=== PATIENT | male | born 1960 | race Two or more races ===

== ENCOUNTER 2023-03-01 21:00 | Inpatient (IN) | payer MEDICAID, OTHER ==
[~2023-03-01] VITALS: Ht 185.4 cm; Wt 99.2 kg
[2023-03-01 21:45] LABS: Basophils # (auto) 0.1 10 ^3/uL (0-0.2); Basophils % (auto) 0.5 % (0.0-2.0); Eosinophils # (auto) 0.3 10 ^3/uL (0-0.8); Eosinophils % (auto) 3.2 % (0.0-7.0); Hematocrit 48.2 % (41.0-53.0); Hemoglobin 15.6 g/dL (13.5-17.5); Lymphocytes # (auto) 2.6 10 ^3/uL (0.4-5.4); Lymphocytes % (auto) 27.5 % (10.0-50.0); Mean Corpuscular Hemoglobin 27.8 pg (28.0-32.0); Mean Corpuscular Hgb Conc. 32.3 g/dL (32.0-36.0); Mean Corpuscular Volume 86.1 fL (80.0-100.0); Monocytes % (auto) 10.3 % (0.0-12.0); Neutrophils # (auto) 5.6 10 ^3/uL (1.6-8.6); Neutrophils % (auto) 58.5 % (37.0-80.0); Nucleated Red Blood Cells % 0.1 %; Red Blood Cells 5.59 10^6/uL (4.5-5.90); White Blood Cell 9.6 10^3/uL (4.4-10.8)
[2023-03-01 22:02] LABS: Urine Bacteria NONE SEEN /hpf (None Seen); Urine Blood Negative /uL (Negative); Urine Clarity Clear (Clear); Urine Color Yellow (Yellow); Urine Protein, UAD Negative (Negative); Urine Specific Gravity 1.018 (1.001-1.035); Urine Urobilinogen Normal (Negative); Urine WBC 28 /hpf (0 - 3); Urine pH 5.5 (5.0-8.0)
[2023-03-01 22:24] LABS: Lactic Acid w/Reflex 2.1 mmol/L (0.4-2.0)
[2023-03-01 22:26] LABS: Alanine Aminotransferase 25 U/L (7-40); Albumin 4.3 g/dL (3.2-4.8); Alkaline Phosphatase 75 U/L (46-116); Anion Gap 8.1 (5-15); Aspartate Aminotransferase 22 U/L (13-40); BUN/Creatinine Ratio 10.5 (10.0-20.0); Blood Urea Nitrogen 18 mg/dL (9-23); Calcium 9.3 mg/dL (8.7-10.4); Carbon Dioxide 20.9 mmol/L (20-30); Chloride 111 mmol/L (98-107); Glucose 111 mg/dL (74-106); Sodium 140 mmol/L (136-145)
[2023-03-01 22:27] LABS: Bilirubin, Total 0.3 mg/dL (0.2-1.0); Total Protein 7.3 g/dL (5.7-8.2)
[2023-03-01 22:50] VITALS: PULSE 104; RESP 20; O2SAT 96
[2023-03-01 23:04] LABS: Base Excess -1.5 mmol/L (-2.0-2.0)
[2023-03-01] MEDS ORDERED: IOHEXOL 350 MG/ML 100ML IJ ONE (23:09)
[2023-03-01] MEDS ORDERED: ASPirin 325 MG TAB PO ONE (23:15)
[2023-03-01 23:58] VITALS: BP 157/117; PULSE 120; RESP 22; TEMP 97.6; O2SAT 94
[2023-03-02] MEDS ORDERED: ENOXAPARIN SOD 100 MG/1 ML SYRINGE SC ONE
[2023-03-02] MEDS ORDERED: ONDANSETRON HCL 4 MG/2 ML VIAL IV PRN (00:15)
[2023-03-02] MEDS ORDERED: NITROGLYCERIN 0.4 MG SL TAB SL PRN (00:15)
[2023-03-02] MEDS ORDERED: HYDROcodone-ACET 5/325MG TAB PO PRN (00:15)
[2023-03-02] MEDS ORDERED: ACETAMINOPHEN 325 MG TAB PO PRN (00:15)
[2023-03-02] MEDS ORDERED: MORPHINE SULFATE INJ 2 MG/ml SYRG IV PRN (00:15)
[2023-03-02] MEDS ORDERED: ALBUTEROL SULF 2.5 MG/0.5ML(0.5%) NEB SOLN NEB PRN (00:15)
[2023-03-02] MEDS: cefTRIAXone 1GM/50ML D5W 50 ML IV SCH ×2 (00:40→21:10)
[2023-03-02] MEDS ORDERED: dilTIAZem 25 MG/5 ML VIAL IV ONE (01:15)
[2023-03-02] MEDS ORDERED: hydrALAZINE HCL 20 MG/ML VL IV ONE (03:30)
[2023-03-02 07:16] VITALS: O2SAT 96
[2023-03-02 07:50] VITALS: PULSE 98; RESP 21; O2SAT 96
[2023-03-02] MEDS: ENOXAPARIN SOD 100 MG/1 ML SYRINGE SC SCH ×2 (09:47→23:22)
[2023-03-02] MEDS: PANTOPRAZOLE 40 MG TAB PO SCH (09:48)
[2023-03-02] MEDS: ASPirin 81 mg TAB PO SCH (09:48)
[2023-03-02] MEDS: LISINOPRIL 10 MG TAB PO SCH (09:48)
[2023-03-02] MEDS ORDERED: hydrALAZINE HCL 20 MG/ML VL IV PRN (11:15)
[2023-03-02] MEDS: NICOTINE 14 MG/24HR TOPICAL PATCH TD SCH (14:24)
[2023-03-02 20:00] VITALS: PULSE 107; RESP 29; O2SAT 96
[2023-03-02 21:15] LABS: COVID19 ANTIGEN SOFIA FIA NEGATIVE (NEGATIVE)
[2023-03-02 21:31] VITALS: O2SAT 96
[2023-03-03] VITALS (10 sets, daily range): BP systolic 100–125; BP diastolic 71–92; PULSE 74–116; RESP 18–22; TEMP 97.6–98.9; O2SAT 92–100
[2023-03-03 06:08] LABS: Basophils # (auto) 0 10 ^3/uL (0-0.2); Basophils % (auto) 0.4 % (0.0-2.0); Hemoglobin 16.5 g/dL (13.5-17.5); Neutrophils # (auto) 6.6 10 ^3/uL (1.6-8.6); Nucleated Red Blood Cells % 0.1 %
[2023-03-03 06:12] LABS: Eosinophils # (auto) 0.3 10 ^3/uL (0-0.8); Eosinophils % (auto) 2.7 % (0.0-7.0); Hematocrit 50.9 % (41.0-53.0); Lymphocytes # (auto) 1.5 10 ^3/uL (0.4-5.4); Lymphocytes % (auto) 15.6 % (10.0-50.0); Mean Corpuscular Hemoglobin 27.8 pg (28.0-32.0); Mean Corpuscular Hgb Conc. 32.4 g/dL (32.0-36.0); Mean Corpuscular Volume 85.6 fL (80.0-100.0); Monocytes % (auto) 11.1 % (0.0-12.0); Neutrophils % (auto) 70.2 % (37.0-80.0); Red Blood Cells 5.95 10^6/uL (4.5-5.90); White Blood Cell 9.4 10^3/uL (4.4-10.8)
[2023-03-03 06:27] LABS: Alanine Aminotransferase 23 U/L (7-40); Albumin 4.2 g/dL (3.2-4.8); Alkaline Phosphatase 72 U/L (46-116); Anion Gap 9.5 (5-15); Aspartate Aminotransferase 16 U/L (13-40); Calcium 9.1 mg/dL (8.7-10.4); Carbon Dioxide 20.5 mmol/L (20-30); Chloride 108 mmol/L (98-107); Glucose 104 mg/dL (74-106); Potassium 4.2 mmol/L (3.5-5.1); Sodium 138 mmol/L (136-145)
[2023-03-03 06:28] LABS: Bilirubin, Total 0.7 mg/dL (0.2-1.0); Blood Urea Nitrogen 18 mg/dL (9-23); Total Protein 7.2 g/dL (5.7-8.2)
[2023-03-03] MEDS: ASPirin 81 mg TAB PO SCH (09:08)
[2023-03-03] MEDS: PANTOPRAZOLE 40 MG TAB PO SCH (09:08)
[2023-03-03] MEDS: ENOXAPARIN SOD 100 MG/1 ML SYRINGE SC SCH ×2 (09:09→21:44)
[2023-03-03] MEDS: LISINOPRIL 10 MG TAB PO SCH (09:09)
[2023-03-03] MEDS: NICOTINE 14 MG/24HR TOPICAL PATCH TD SCH (09:10)
[2023-03-03 12:25] LABS: Amphetamine Screen, Urine Pos (NEGATIVE)
[2023-03-03 12:27] LABS: Barbiturate Scree,Urine Neg (NEGATIVE); Benzodiazephine Screen, Urine Neg (NEGATIVE); Cannabinoid Screen, Urine Neg (NEGATIVE); Cocaine Screen, Urine Neg (NEGATIVE); Opiate Scree,Urine Neg (NEGATIVE); Phencyclidine Screen, Urine Neg (NEGATIVE)
[2023-03-03] MEDS: cefTRIAXone 1GM/50ML D5W 50 ML IV SCH (21:44)
[2023-03-04] VITALS (9 sets, daily range): BP systolic 102–119; BP diastolic 66–91; PULSE 81–109; RESP 14–20; TEMP 97.5–98.8; O2SAT 91–98
[2023-03-04] MEDS: LISINOPRIL 10 MG TAB PO SCH (09:26)
[2023-03-04] MEDS: ASPirin 81 mg TAB PO SCH (09:27)
[2023-03-04] MEDS: PANTOPRAZOLE 40 MG TAB PO SCH (09:27)
[2023-03-04 09:28] LABS: Basophils # (auto) 0 10 ^3/uL (0-0.2); Basophils % (auto) 0.6 % (0.0-2.0); Eosinophils # (auto) 0.3 10 ^3/uL (0-0.8); Eosinophils % (auto) 3.8 % (0.0-7.0); Hematocrit 51.2 % (41.0-53.0); Hemoglobin 16.7 g/dL (13.5-17.5); Lymphocytes # (auto) 1.3 10 ^3/uL (0.4-5.4); Lymphocytes % (auto) 17.6 % (10.0-50.0); Mean Corpuscular Hemoglobin 27.9 pg (28.0-32.0); Mean Corpuscular Hgb Conc. 32.7 g/dL (32.0-36.0); Mean Corpuscular Volume 85.5 fL (80.0-100.0); Monocytes # (auto) 0.7 10 ^3/uL (0-1.3); Monocytes % (auto) 9.4 % (0.0-12.0); Neutrophils # (auto) 5.2 10 ^3/uL (1.6-8.6); Neutrophils % (auto) 68.6 % (37.0-80.0); Nucleated Red Blood Cells % 0.1 %; Red Blood Cells 5.99 10^6/uL (4.5-5.90); Red Cell Distribution Width 14.9 % (11.8-14.3); White Blood Cell 7.6 10^3/uL (4.4-10.8)
[2023-03-04] MEDS: NICOTINE 14 MG/24HR TOPICAL PATCH TD SCH (09:28)
[2023-03-04] MEDS: ENOXAPARIN SOD 100 MG/1 ML SYRINGE SC SCH (09:28)
[2023-03-04 10:06] LABS: Alanine Aminotransferase 37 U/L (7-40); Albumin 4.2 g/dL (3.2-4.8); Alkaline Phosphatase 65 U/L (46-116); Anion Gap 8.9 (5-15); Aspartate Aminotransferase 26 U/L (13-40); BUN/Creatinine Ratio 13.8 (10.0-20.0); Bilirubin, Total 0.6 mg/dL (0.2-1.0); Blood Urea Nitrogen 21 mg/dL (9-23); Calcium 9.2 mg/dL (8.5-10.1); Carbon Dioxide 19.1 mmol/L (20-30); Chloride 108 mmol/L (98-107); Glucose 166 mg/dL (74-106); Potassium 4.2 mmol/L (3.5-5.1); Sodium 136 mmol/L (136-145); Total Protein 7.2 g/dL (5.7-8.2)
[2023-03-04] MEDS: APIXABAN 5 MG TAB PO SCH (21:17)
[2023-03-04] MEDS: cefTRIAXone 1GM/50ML D5W 50 ML IV SCH (21:17)
[2023-03-05 05:00] VITALS: BP 123/81; PULSE 85; RESP 16; TEMP 97.9; O2SAT 95
[2023-03-05 06:04] LABS: Basophils # (auto) 0 10 ^3/uL (0-0.2); Basophils % (auto) 0.5 % (0.0-2.0); Eosinophils # (auto) 0.4 10 ^3/uL (0-0.8); Eosinophils % (auto) 4.4 % (0.0-7.0); Hematocrit 49.7 % (41.0-53.0); Hemoglobin 16.4 g/dL (13.5-17.5); Lymphocytes # (auto) 1.8 10 ^3/uL (0.4-5.4); Mean Corpuscular Hemoglobin 28.1 pg (28.0-32.0); Mean Corpuscular Hgb Conc. 32.9 g/dL (32.0-36.0); Mean Corpuscular Volume 85.2 fL (80.0-100.0); Monocytes % (auto) 12.8 % (0.0-12.0); Neutrophils % (auto) 60.3 % (37.0-80.0); Nucleated Red Blood Cells % 0.1 %; Red Blood Cells 5.83 10^6/uL (4.5-5.90); Red Cell Distribution Width 14.9 % (11.8-14.3); White Blood Cell 8.2 10^3/uL (4.4-10.8)
[2023-03-05 06:05] LABS: Anion Gap 7.3 (5-15); Carbon Dioxide 21.7 mmol/L (20-30); Chloride 108 mmol/L (98-107); Potassium 4.9 mmol/L (3.5-5.1); Sodium 137 mmol/L (136-145)
[2023-03-05 06:06] LABS: Calcium 9.2 mg/dL (8.7-10.4)
[2023-03-05 06:11] LABS: BUN/Creatinine Ratio 14.5 (10.0-20.0); Blood Urea Nitrogen 25 mg/dL (9-23); Glucose 107 mg/dL (74-106)
[2023-03-05 08:00] VITALS: PULSE 93; O2SAT 94
[2023-03-05] MEDS: NICOTINE 14 MG/24HR TOPICAL PATCH TD SCH (08:57)
[2023-03-05] MEDS: APIXABAN 5 MG TAB PO SCH (08:58)
[2023-03-05] MEDS: ASPirin 81 mg TAB PO SCH (08:58)
[2023-03-05] MEDS: LISINOPRIL 10 MG TAB PO SCH (08:59)
[2023-03-05] MEDS: PANTOPRAZOLE 40 MG TAB PO SCH (08:59)
[2023-03-05 09:01] VITALS: BP 114/88; PULSE 88; RESP 19; TEMP 97.5; O2SAT 90
[2023-03-05] MEDS ORDERED: APIX5TAB4 PO ×3 (09:42→09:44)
[2023-03-05 10:00] VITALS: O2SAT 94
[2023-03-05 12:26] VITALS: BP 120/90; PULSE 87; RESP 20; TEMP 97.9; O2SAT 92
[2023-03-06 09:12] LABS: Hepatitis B Surface Antigen Negative (Negative)
[2023-03-06 09:34] LABS: Hepatitis C Antibody Negative (Negative)
[2023-03-11] MEDS ORDERED: APIXABAN 5 MG TAB PO SCH (22:00)
== END 2023-03-05 14:45 | disposition home or self-care (01) | DRG 134 ==
LOC: ER 21:00 → TELE 03-02 00:16 → TELE-WESTW 03-02 23:33
PROVIDERS: ADMIT Internal Medicine; ATTEND Internal Medicine
DX: I26.99 Other pulmonary embolism without acute cor pulmonale (principal); J96.01 Acute respiratory failure with hypoxia; I50.21 Acute systolic (congestive) heart failure; N17.9 Acute kidney failure, unspecified; N39.0 Urinary tract infection, site not specified; Z20.822 Contact with and (suspected) exposure to COVID-19; F17.210 Nicotine dependence, cigarettes, uncomplicated; E04.1 Nontoxic single thyroid nodule; E87.3 Alkalosis; I13.0 Hypertensive heart and chronic kidney disease with heart failure and stage 1 through stage 4 chronic kidney disease, or unspecified chronic kidney disease; N18.32 Chronic kidney disease, stage 3b; F15.10 Other stimulant abuse, uncomplicated; E66.9 Obesity, unspecified; Z83.3 Family history of diabetes mellitus; Z82.5 Family history of asthma and other chronic lower respiratory diseases; Z79.01 Long term (current) use of anticoagulants; Z71.6 Tobacco abuse counseling; Z68.28 Body mass index [BMI] 28.0-28.9, adult
CPT/HCPCS: 36415; 36600; 71045; 71275; 80048; 80053; 80307; 81001; 82805; 83036; 83605; 83880; 84443; 84484; 85025; 85379; 86803; 87086; 87340; 87426; 93005; 93306; 93886; 93970; 99291; G0378; J0696

== ENCOUNTER 2024-11-27 23:13 | Inpatient (IN) | payer MEDICAID ==
[~2024-11-27] VITALS: Ht 185.4 cm; Wt 92.9 kg
[~2024-11-27 23:13] MED LIST: APIX5TAB4 PO
--- NOTE | 2024-11-27 23:35 | ED.PDOC ---
HPI Comments 64 year old male presents to the ED with a chief complaint of chest pain onset 3 days. Patient states he has been experiencing chest pain described as a sharp, pressure sensation as well as shortness of breath, fatigue, dizziness for the past 3 days. He noticed symptoms worsen today, was not able to walk from bedroom to restroom due to shortness of breath, fatigue. Patient initially saw PCP 6 months ago, missed follow up appointment, has appointment on 11/29/24. Denies na usea, vomiting, diarrhea, abdominal pain, headache, fevers, chills, dysuria. No other symptoms or modifying factors present at this time. Chief Complaint: Chest Pain Time Seen by MD: 23:25 Reviewed Notes: Medications, Allergies Allergies: Coded Allergies: NO KNOWN ALLERGIES (Unverified , 03/01/23) Home Meds Active Scripts Apixaban Base (Eliquis Starter Pack) 5 Mg Tab, 5 MG PO BID, #70 TAB 1 Refill take 2 tablets twice per day for 7 days then 1 tab twice per day until finish. Prov:SHAYNE ALMANZA MD 03/05/23 Information Source: Patient Mode of Arrival: Ambulatory Severity: Moderate Timing: Days Duration: Since onset Prehospital treatment: None Location: Chest (L) Radiation: No Radiation Quality: Sharp, Pressure Onset: At Rest Cardiac Risk Factors: None PE Risk Factors: None History of: None Modifying Factors: Nothing Associated Signs and Symptoms: SOB Past Medical History PAST MEDICAL HISTORY: Denies Surgical History: Denies all surgeries Family History Family History: Reviewed,noncontributory to illness, No family hx of Cancer, No family hx of DM, No family hx of Heart renae, No family hx of HTN, No family hx ofKidney renae, No family hx of Liver renae, No family hx of Lung renae, No family hx of Stroke Social History Smoker: Non-Smoker Alcohol: Denies ETOH Use Drugs: Denies Drug Use Lives In: Home Constitutional: reports: fatigue; denies: chills, diaphoresis, fever, malaise, sweats, weakness, others EENTM: denies: blurred vision, double vision, ear bleeding, ear discharge, ear drainage, ear pain, ear ringing, eye pain, eye redness, hearing loss, mouth pain, mouth swelling, nasal discharge, nose bleeding, nose congestion, nose pain, photophobia, tearing, throat pain, throat swelling, voice changes, others Respiratory: reports: shortness of breath; denies: cough, hemoptysis, orthopnea, SOB at rest, SOB with excertion, stridor, wheezing, others Cardiovascular: reports: chest pain; denies: dizzy spells, diaphoresis, Dyspnea on exertion, edema, irregular heart beat, left arm pain, lightheadedness, palpitations, PND, syncope, others Gastrointestinal: denies: abdomen distended, abdominal pain, blood streaked bowels, constipated, diarrhea, dysphagia, difficulty swallowing, hematemesis, melena, nausea, poor appetite, poor fluid intake, rectal bleeding, rectal pain, vomiting, others Genitourinary: denies: burning, dysuria, flank pain, frequency, hematuria, inco ntinence, penile discharge, penile sore, pain, testicle pain, testicle swelling, urgency, others Neurological: reports: dizziness; denies: fainting, headache, left sided numbness, left sided weakness, numbness, paresthesia, pre-existing deficit, right sided numbness, right sided weakness, seizure, speech problems, tingling, tremors, weakness, others Musculoskeletal: denies: back pain, gout, joint pain, joint swelling, muscle pain, muscle stiffness, neck pain, others Integumetry: denies: bruises, change in color, change in hair/nails, dryness, laceration, lesions, lumps, rash, wounds, others Allergic/Immunocompromised: denies: Difficulty Healing, Frequent Infections, Hives, Itching, others Hematologic/Lymphatic: denies: anemia, blood clots, easy bleeding, easy bruising, swollen glands, others Endocrine: denies: excessive hunger, excessive sweating, excessive thirst, excessive urination, flushing, intolerance to cold, intolerance to heat, unexplained weight gain, unexplained weight loss, others Psychiatric: denies: anxiety, bipolar disorder, depression, hopeless, panic disorder, schizophrenia, sleepless, suicidal, others All Other Systems: Reviewed and Negative Physical Exam General Appearance: Normal HEENT: Normal ENT Inspection, Pharynx Normal, TMs Normal Neck: Full Range of Motion, Non-Tender, Normal, Normal Inspection Respiratory: Chest Non-Tender, Lungs Clear, No Accessory Muscle Use, No Respiratory Distress, Normal Breath Sounds Cardiovascular: No Edema, No JVD, No Murmur, No Gallop, Normal Peripheral Pulses, Regular Rate/Rhythm Breast Exam: Deferred Gastrointestinal: No Organomegaly, Non Tender, No Pulsatile Mass, Normal Bowel Sounds, Soft Genitalia: Deferred Pelvic: Deferred Rectal: Deferred Extremities: No calf tenderness, Normal capillary refill, Normal inspection, Normal range of motion, Non-tender, No pedal edema Musculoskeletal : Apperance: Normal 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 Was a procedure done?: No CP Differential Dx Differential Diagnosis: A-fib, A-Flutter, Angina, Heart Failure, Hyperthyroidism, Hyperventilation, NE, V-Fib, V-Tach, Other X-Ray, Labs, Meds, VS Vital Signs Date Time Temp Pulse Resp B/P (MAP) Pulse Ox O2 Delivery O2 Flow Rate FiO2 11/28/24 01:05 135/80 11/28/24 01:03 109 15 135/80 11/28/24 00:10 117 11/27/24 23:20 98.3 111 16 149/112 (124) 95 98.3 11/27/24 23:19 116 Lab Test 11/28/24 00:15 11/27/24 23:24 Range/Units Troponin I High Sensitivity 183 *H 190 *H </=54 ng/L White Blood Count 12.1 H 4.4-10.8 10^3/uL Red Blood Count 5.92 H 4.5-5.90 10^6/uL Hemoglobin 17.2 13.5-17.5 g/dL Hematocrit 52.2 41.0-53.0 % Mean Corpuscular Volume 88.2 80.0-100.0 fL Mean Corpuscular Hemoglobin 29.0 28.0-32.0 pg Mean Corpuscular Hemoglobin Concent 32.9 32.0-36.0 g/dL Red Cell Distribution Width 15.0 H 11.8-14.3 % Platelet Count 244 140-450 10^3/uL Mean Platelet Volume 8.3 6.9-10.8 fL Neutrophils (%) (Auto) 68.8 37.0-80.0 % Lymphocytes (%) (Auto) 17.5 10.0-50.0 % Monocytes (%) (Auto) 12.5 H 0.0-12.0 % Eosinophils (%) (Auto) 0.6 0.0-7.0 % Basophils (%) (Auto) 0.6 0.0-2.0 % Neutrophils # (Auto) 8.3 1.6-8.6 10 ^3/uL Lymphocytes # (Auto) 2.1 0.4-5.4 10 ^3/uL Monocytes # (Auto) 1.5 H 0-1.3 10 ^3/uL Eosinophils # (Auto) 0.1 0-0.8 10 ^3/uL Basophils # (Auto) 0.1 0-0.2 10 ^3/uL Nucleated Red Blood Cells 0.1 % Prothrombin Time 11.7 9.3-11.8 sec Prothrombin Time INR 1.12 0.9-1.15 Activated Partial Thromboplast Time 28.7 24.5-34.5 SEC D-Dimer, Quantitative 2.03 H 0.0-0.49 mg/L FEU Sodium Level 139 136-145 mmol/L Potassium Level 4.3 3.5-5.1 mmol/L Chloride Level 108 H 98-107 mmol/L Carbon Dioxide Level 21 20-31 mmol/L Anion Gap 10 5-15 Blood Urea Nitrogen 18 9-23 mg/dL Creatinine 2.17 H 0.700-1.30 mg/dL Glomerular Filtration Rate Calc 33 >90 mL/min BUN/Creatinine Ratio 8.3 L 10.0-20.0 Serum Glucose 90 74-106 mg/dL Calcium Level 9.3 8.7-10.4 mg/dL Total Bilirubin 0.9 0.2-1.0 mg/dL Aspartate Amino Transferase (AST) 70 H 13-40 U/L Alanine Aminotransferase (ALT) 82 H 7-40 U/L Alkaline Phosphatase 102 46-116 U/L B-Type Natriuretic Peptide 663.03 0-100 pg/mL Total Protein 7.2 5.7-8.2 g/dL Albumin 4.4 3.2-4.8 g/dL Current Medications Medications (Trade) Dose Ordered Sig/Sarahi Route Start Time Stop Time Status Last Admin Aspirin 162 mg ONCE ONCE PO 11/28/24 00:15 11/28/24 00:16 DC 11/28/24 01:01 Nitroglycerin (Nitro-Bid) 1 pkg ONCE ONCE TD 11/28/24 00:15 11/28/24 00:16 DC 11/28/24 01:05 Morphine Sulfate 4 mg ONCE ONCE IV 11/28/24 00:15 11/28/24 00:16 DC 11/28/24 01:03 Ondansetron HCl (Zofran) 4 mg ONCE ONCE IV 11/28/24 00:15 11/28/24 00:16 DC 11/28/24 01:01 Time of 1ST Reevaluation: 23:55 Reevaluation 1ST: Unchanged Patient Education/Counseling: Diagnosis, Treatment, Prognosis Family Education/Counseling: No Family Present Departure 1 Departure Time of Disposition: 01:30 Impression: Primary Impression: Acute coronary syndrome Additional Impression: History of pulmonary embolism Disposition: ADMITTED INPATIENT Admit to: [facility] Condition: Guarded Discharged With: Self Comments Chest Pain and Dyspnea with History of PE Chief Complaint: Chest pain and shortness of breath with exertion History of Present Illness: 64-year-old male presents with progressive dyspnea on exertion and chest discomfort/pain for the past couple of days. Symptoms worsen with any kind of physical activity. Patient has significant history of bilateral pulmonary emboli six months ago, for which he was prescribed Eliquis but only completed one month of therapy instead of the full course. His history is also notable for hypertension. Given his current presentation and history of non-compliance with anticoagulation, there is high concern for recurrent pulmonary embolism and/or acute coronary syndrome. 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 Allergies: No known allergies documented Past Medical History: Hypertension Bilateral pulmonary emboli (6 months ago) Chronic kidney disease Vital Signs: Heart Rate: Sinus tachycardia, approximately 110 bpm Physical Exam: Physical examination details not documented in 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 Problem List: 1. Chest pain with elevated troponin 2. Dyspnea on exertion 3. History of PE with medication non-compliance 4. Acute kidney injury/CKD 5. Hypertension Differential Diagnosis: 1. Acute Coronary Syndrome 2. Recurrent Pulmonary Embolism 3. Acute Decompensated Heart Failure 4. Acute Kidney Injury ED Course: Patient received aspirin and IV fluids. Given elevated troponin and concern for PE, decision made to initiate heparin infusion. CT angiogram deferred due to renal dysfunction; VQ scan planned for tomorrow. Assessment and Plan: 1. Acute Coronary Syndrome/Chest Pain: - Elevated troponin with exertional symptoms - Started on aspirin - Admit for further cardiac workup and management 2. Suspected Recurrent Pulmonary Embolism: - History of bilateral PE with medication non-compliance - Elevated D-dimer - Started on heparin infusion - Plan for VQ scan tomorrow due to inability to perform CTA (renal dysfunction) 3. Acute Kidney Injury/CKD: - Elevated creatinine 2.17, GFR 33 - IV fluids initiated - Will require careful medication dosing and contrast avoidance Disposition: Admission to hospital for further workup and management Billing Information: ICD-10: R07.9 - Chest pain, unspecified ICD-10: I26.99 - Other pulmonary embolism without acute cor pulmonale ICD-10: N17.9 - Acute kidney failure, unspecified ICD-10: I10 - Essential (primary) hypertension Critical Care Note Critical Care Time?: Yes (35 min-critical care time only) Critical care comment: Total critical care time: Approximately 36 minutes Due to a high probability of clinically significant, life threatening deterioration, the patient required my highest level of preparedness to intervene emergently and I personally spent this critical care time directly and personally managing the patient. This critical care time included obtaining a history; examining the patient; pulse oximetry; ordering and review of studies; arranging urgent treatment with development of a management plan; evaluation of patient's response to treatment; frequent reassessment; and, discussions with other providers. This critical care time was performed to assess and manage the high probability of imminent, life-threatening deterioration that could result in multi-organ failure. It was exclusive of separately billable procedures and treating other patients. Stability Stability form required: No Heart Score Heart Score: Heart Score Response (Comments) Value History Highly Suspicious 2 EKG Repolarization Disturb 1 Age 45-64 1 Risk Factors 1 or 2 risk factors 1 Troponin >3 x's Normal limit 2 Total 7 I personally scribed for LEONARDO RICHARDSON MD ([email or web address]) on 11/27/24 at 23:35. Electronically submitted by Carisa Driver ([email or web address]). LEONARDO RICHARDSON MD Nov 27, 2024 23:35
[2024-11-27 23:37] LABS: Basophils # (auto) 0.1 10 ^3/uL (0-0.2); Basophils % (auto) 0.6 % (0.0-2.0); Eosinophils # (auto) 0.1 10 ^3/uL (0-0.8); Eosinophils % (auto) 0.6 % (0.0-7.0); Hematocrit 52.2 % (41.0-53.0); Hemoglobin 17.2 g/dL (13.5-17.5); Lymphocytes # (auto) 2.1 10 ^3/uL (0.4-5.4); Lymphocytes % (auto) 17.5 % (10.0-50.0); Monocytes # (auto) 1.5 10 ^3/uL (0-1.3); Monocytes % (auto) 12.5 % (0.0-12.0); Neutrophils # (auto) 8.3 10 ^3/uL (1.6-8.6); Neutrophils % (auto) 68.8 % (37.0-80.0); Nucleated Red Blood Cells % 0.1 %; Red Blood Cells 5.92 10^6/uL (4.5-5.90); White Blood Cell 12.1 10^3/uL (4.4-10.8)
[2024-11-27 23:38] LABS: Mean Corpuscular Hgb Conc. 32.9 g/dL (32.0-36.0); Mean Corpuscular Volume 88.2 fL (80.0-100.0); Platelet Count (auto) 244 10^3/uL (140-450)
[2024-11-28] VITALS (7 sets, daily range): BP systolic 118–133; BP diastolic 72–86; PULSE 92–111; RESP 19–32; TEMP 98.2; O2SAT 91–97
[2024-11-28 00:01] LABS: Albumin 4.4 g/dL (3.2-4.8); Alkaline Phosphatase 102 U/L (46-116); Anion Gap 10 (5-15); BUN/Creatinine Ratio 8.3 (10.0-20.0); Bilirubin, Total 0.9 mg/dL (0.2-1.0); Blood Urea Nitrogen 18 mg/dL (9-23); Calcium 9.3 mg/dL (8.7-10.4); Carbon Dioxide 21 mmol/L (20-31); Glucose 90 mg/dL (74-106); INR 1.12 (0.9-1.15); Partial Thromboplastin Time 28.7 SEC (24.5-34.5); Potassium 4.3 mmol/L (3.5-5.1); Prothrombin Time 11.7 sec (9.3-11.8); Sodium 139 mmol/L (136-145); Total Protein 7.2 g/dL (5.7-8.2)
[2024-11-28 00:02] LABS: Alanine Aminotransferase 82 U/L (7-40); Aspartate Aminotransferase 70 U/L (13-40); Chloride 108 mmol/L (98-107)
--- NOTE | 2024-11-28 00:30 | DVH ---
CHEST RADIOGRAPH Indication: CHEST PAIN Technique: Single frontal view of the chest was obtained Comparison: XY CHEST PORTABLE on DOS: 03/01/23 FINDINGS: Lines and Tubes: None Lungs: Clear Pleura: No effusion. No pneumothorax. Cardiomediastinal contours: Unremarkable Bones: Unremarkable IMPRESSION: Clear lungs.
[2024-11-28] MEDS: ONDANSETRON HCL 4 MG/2 ML VIAL IV ONE (01:01)
[2024-11-28] MEDS: ASPirin 81 mg TAB PO ONE (01:01)
[2024-11-28] MEDS: MORPHINE SULFATE 4 MG/ML SYR/VIAL IV ONE (01:03)
[2024-11-28] MEDS: NITROGLYCERIN 2% OINT 1GM PKG TD ONE (01:05)
[2024-11-28] MEDS: HEPARIN SODIUM (PORCINE) 5000 UNITS/ML 1ML VIAL IV ONE ×2 (02:04→21:47)
[2024-11-28] MEDS: SODIUM CHLORIDE 0.9% 1,000 ML IV SCH ×2 (02:15→11:45)
[2024-11-28] MEDS: HEPARIN DRIP/D5W 100UNITS/ML 250 ML IV SCH ×4 (02:20→21:51)
[2024-11-28 02:34] LABS: Triglycerides 112 mg/dL (< 150)
[2024-11-28 02:35] LABS: Cholesterol 161 mg/dL (< 200)
--- NOTE | 2024-11-28 02:39 | DVHHPRES ---
History of Present Illness Resident Creating Document: CLAUDE RADER History of Present Illness This is a 64-year-old male with no past medical history of relevance, who takes no medications at home. Patient presented to the ED with chief complaint of acute chest pain associated with shortness of breaths. The patient states that the symptoms started 3-4 days ago consistent initially with shortness of breaths that progressed developing chest pain. The patient described the pain as intermittent sharp pain that comes and goes and rates the pain as 8/10 on the pa in scale. On admission, the patient was requiring 2 L of oxygen through nasal cannula to saturating 91%. Patient denied lower extremity pain, swelling, fever/chills, abdominal tenderness or any other symptoms. Initial labs CBC was grossly unremarkable, CMP showed a creatinine of 2.17 and BUN of 18. Troponins came back elevated, D-dimer came back significantly elevated and BNP was 663. Initial chest x-ray was grossly clear with no evidence of consolidations. We will order V/Q scan since the patient has TAHIRA on CKD and she did not get IV contrast at this point. Patient was started on heparin drip and we will be admitted for further assessment and management. Past medical history: Denies Home medications: Denies Past surgical history: Denies Social history: Reports consumption of marijuana and methamphetamine and occasional alcohol. Reports that quit smoking long time ago. Past Surgical History: None Family History: None Smoke: Quit ALCOHOL: occassional Drugs: Marijuana, Other (Methamphetamines) Lives: with Family Domestic Violence: Neg Review of Systems Constitutional: No: Fever, Chills, Sweats, Weakness, Malaise, Other Eyes: No: Pain, Vision change, Conjunctivae inflammation, Eyelid inflammation, Other, Redness ENT: No: Ear pain, Ear discharge, Nose pain, Nose discharge, Nose congestion, Mouth pain, Mouth swelling, Throat pain, Throat swelling, Other Respiratory: Shortness of breath, SOB with excertion, Pleuritic Pain; No: Cough, Dry, Wheezing, Hemoptysis, Sputum, Wheezing, Other Cardiovascular: Chest Pain; No: Palpitations, Orthopnea, Paroxysmal Noc. Dyspnea, Edema, Lt Headedness, Other Gastrointestinal: No: Nausea, Vomiting, Abdominal Pain, Diarrhea, Constipation, Melena, Hematochezia, Other Genitourinary: No Dysuria, No Frequency, No Incontinence, No Hematuria, No Rete ntion, No Other Musculoskeletal: No: other, neck pain, shoulder pain, arm pain, back pain, hand pain, leg pain, foot pain Skin: No: Rash, Lesions, Jaundice, Bruising, Other Neurological: No: Weakness, Numbness, Incoordination, Change in speech, Confusion, Seizures, Other Allergies: Coded Allergies: NO KNOWN ALLERGIES (Unverified , 03/01/23) Medications Current Medications Medications Dose Ordered Sig/Sarahi Route Start Time Stop Time Status Last Admin Dose Admin Heparin Sodium/ Dextrose 250 ml @ 10 mls/hr Q24H IV 11/28/24 01:45 Sodium Chloride 1,000 ml @ 60 mls/hr [id number] IV 11/28/24 02:15 UNV Acetaminophen 650 mg Q6HP PRN PO 11/28/24 02:15 UNV Exam Vital Signs Vital Signs Date Time Temp Pulse Resp B/P (MAP) Pulse Ox O2 Delivery O2 Flow Rate FiO2 11/28/24 01:05 135/80 11/28/24 01:03 109 15 11/27/24 23:20 98.3 95 98.3 General Appearance: Alert, Oriented X3, Cooperative, mild distress HEENT: Atraumatic, PERRLA, EOMI, Mucous membr. moist/pink Respiratory: Clear to auscultation, Normal air movement Cardiovascular: Regular rate, Normal S1, Normal S2, No murmurs Abdominal: Normal bowel sounds, Soft, No tenderness, No hepatospenomegaly, No masses Extremities: No clubbing, No cyanosis, No edema, Normal pulses, No tenderness/swelling Skin: No rashes, No breakdown, No significant lesion Neuro: Normal gait, Normal speech, Strength at 5/5 X4 ext, Normal tone, Sensation intact, Cranial nerves 3-12 NL, Reflexes 2+ Psych/Mental Status: Mental status NL, Mood NL Labs/Xrays Labs Test 11/28/24 00:15 11/27/24 23:24 Range/Units Troponin I High Sensitivity 183 *H </=54 ng/L White Blood Count 12.1 H 4.4-10.8 10^3/uL Red Blood Count 5.92 H 4.5-5.90 10^6/uL Hemoglobin 17.2 13.5-17.5 g/dL Hematocrit 52.2 41.0-53.0 % Mean Corpuscular Volume 88.2 80.0-100.0 fL Mean Corpuscular Hemoglobin 29.0 28.0-32.0 pg Mean Corpuscular Hemoglobin Concent 32.9 32.0-36.0 g/dL Red Cell Distribution Width 15.0 H 11.8-14.3 % Platelet Count 244 140-450 10^3/uL Mean Platelet Volume 8.3 6.9-10.8 fL Neutrophils (%) (Auto) 68.8 37.0-80.0 % Lymphocytes (%) (Auto) 17.5 10.0-50.0 % Monocytes (%) (Auto) 12.5 H 0.0-12.0 % Eosinophils (%) (Auto) 0.6 0.0-7.0 % Basophils (%) (Auto) 0.6 0.0-2.0 % Neutrophils # (Auto) 8.3 1.6-8.6 10 ^3/uL Lymphocytes # (Auto) 2.1 0.4-5.4 10 ^3/uL Monocytes # (Auto) 1.5 H 0-1.3 10 ^3/uL Eosinophils # (Auto) 0.1 0-0.8 10 ^3/uL Basophils # (Auto) 0.1 0-0.2 10 ^3/uL Nucleated Red Blood Cells 0.1 % Prothrombin Time 11.7 9.3-11.8 sec Prothrombin Time INR 1.12 0.9-1.15 Activated Partial Thromboplast Time 28.7 24.5-34.5 SEC D-Dimer, Quantitative 2.03 H 0.0-0.49 mg/L FEU Sodium Level 139 136-145 mmol/L Potassium Level 4.3 3.5-5.1 mmol/L Chloride Level 108 H 98-107 mmol/L Carbon Dioxide Level 21 20-31 mmol/L Anion Gap 10 5-15 Blood Urea Nitrogen 18 9-23 mg/dL Creatinine 2.17 H 0.700-1.30 mg/dL Glomerular Filtration Rate Calc 33 >90 mL/min BUN/Creatinine Ratio 8.3 L 10.0-20.0 Serum Glucose 90 74-106 mg/dL Calcium Level 9.3 8.7-10.4 mg/dL Total Bilirubin 0.9 0.2-1.0 mg/dL Aspartate Amino Transferase (AST) 70 H 13-40 U/L Alanine Aminotransferase (ALT) 82 H 7-40 U/L Alkaline Phosphatase 102 46-116 U/L B-Type Natriuretic Peptide 663.03 0-100 pg/mL Total Protein 7.2 5.7-8.2 g/dL Albumin 4.4 3.2-4.8 g/dL Assessment/Plan Assessment/Plan Assessment/plan Acute hypoxic respiratory failure, R/O pulmonary embolism Possible Pulmonary embolism NSTEMI likely type II due to above TAHIRA on CKD stage IIIA likely due to vasomotor nephromathy Chronic drug user (methamphetamine and marijuana) Plan -Admit to Telemetry -initial chest x-ray was grossly unremarkable -EKG showed sinus tachycardia with right bundle branch block -D-dimer came significantly elevated, ordered V/Q scan in the setting of TAHIRA -Ordered ECHo to look for RV strain or CHF -started heparin drip -start IV fluids 0.9% at 60 cc/hour -monitor kidney function -currently on 2 L of oxygen through nasal cannula saturating 91% Goals of care discussed with the patient at bedside for >35min, FULL CODE Plan discussed with Dr. Mathur Plan discussed with: Patient My Orders Orders - CLAUDE RAEDR Procedure Category Date Status Time Admit ADMIT 11/28/24 Transmitted 02:08 Code Status CODE 11/28/24 Transmitted 02:08 Vital Signs [facility] 11/28/24 In Process 02:08 Review Orders With BRENDA 11/28/24 In Process Adm. 02:08 Encourage Activity As BRENDA 11/28/24 In Process Tolerate 02:08 Regular Diet DIET 11/28/24 Transmitted Breakfast Sodium Chloride 0.9% PHA 11/28/24 Logged 02:15 Pulse Ox Cont Per Day RT 11/28/24 Logged 02:08 Acetaminophen Tablet PHA 11/28/24 Logged (Tylenol Tablet) 02:15 Notify Of Changes BRENDA 11/28/24 In Process From Base 02:08 Advance Directive BRENDA 11/28/24 In Process 02:08 Basic Metabolic Panel LAB 11/28/24 Logged 04:00 Urinalysis LAB 11/28/24 Logged 02:08 Complete Blood Count LAB 11/28/24 Logged 04:00 Lipid Panel LAB 11/28/24 In Process 02:08 Patient Condition ORDERS 11/28/24 Transmitted 02:08 Allergies BRENDA 11/28/24 In Process 02:08 Drug Screen LAB 11/28/24 Logged 02:08 Hemoglobin A1c LAB 11/28/24 Logged 02:08 Nm Vq Scan NM 11/28/24 Logged 02:14 Date of Service: Nov 28, 2024 Billing Provider: DHRUV MATHUR MD Common Visit Codes: 58545-BSBFIFU INP/OBS CARE (HIGH) Secondary Visit Codes: 95688-AQFTSGGG CARE PLAN 30 MINUTES CLAUDE RADER RESIDENT Nov 28, 2024 02:39
[2024-11-28 02:57] LABS: HDL Cholesterol 36 mg/dL (40-59); LDL Cholesterol 105 mg/dL (< 100)
--- NOTE | 2024-11-28 03:16 | ECG ---
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
--- NOTE | 2024-11-28 03:17 | ECG ---
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
[2024-11-28 05:58] LABS: Basophils # (auto) 0 10 ^3/uL (0-0.2); Basophils % (auto) 0.4 % (0.0-2.0); Eosinophils # (auto) 0.1 10 ^3/uL (0-0.8); Eosinophils % (auto) 0.4 % (0.0-7.0); Hematocrit 48.3 % (41.0-53.0); Hemoglobin 16.2 g/dL (13.5-17.5); Lymphocytes # (auto) 2.1 10 ^3/uL (0.4-5.4); Lymphocytes % (auto) 18.4 % (10.0-50.0); Mean Corpuscular Hemoglobin 29.2 pg (28.0-32.0); Mean Corpuscular Hgb Conc. 33.5 g/dL (32.0-36.0); Mean Corpuscular Volume 87.2 fL (80.0-100.0); Monocytes # (auto) 1.6 10 ^3/uL (0-1.3); Neutrophils # (auto) 7.6 10 ^3/uL (1.6-8.6); Neutrophils % (auto) 66.8 % (37.0-80.0); Nucleated Red Blood Cells % 0.1 %; Platelet Count (auto) 261 10^3/uL (140-450); Red Blood Cells 5.54 10^6/uL (4.5-5.90); Red Cell Distribution Width 14.9 % (11.8-14.3); White Blood Cell 11.4 10^3/uL (4.4-10.8)
[2024-11-28 06:21] LABS: Sodium 136 mmol/L (136-145)
[2024-11-28 06:22] LABS: Anion Gap 5 (5-15); Calcium 9.3 mg/dL (8.7-10.4); Carbon Dioxide 21 mmol/L (20-31)
[2024-11-28 06:27] LABS: Blood Urea Nitrogen 22 mg/dL (9-23); Glucose 93 mg/dL (74-106)
[2024-11-28 06:28] LABS: Chloride 110 mmol/L (98-107)
[2024-11-28 06:30] LABS: Potassium 6.2 mmol/L (3.5-5.1)
[2024-11-28 06:31] LABS: BUN/Creatinine Ratio 10.6 (10.0-20.0)
[2024-11-28 07:59] LABS: INR 1.16 (0.9-1.15); Partial Thromboplastin Time 49.2 SEC (24.5-34.5); Prothrombin Time 12.1 sec (9.3-11.8)
[2024-11-28] MEDS: CALCIUM GLUC 1,000mg/50ml-NS 50 ML IV ONE (08:09)
[2024-11-28] MEDS: DEXTROSE (50%) 50ML SYRG IV ONE (08:10)
[2024-11-28] MEDS: ALBUTEROL SULF 2.5 MG/0.5ML(0.5%) NEB SOLN NEB ONE (08:10)
[2024-11-28] MEDS: SODIUM ZIRCONIUM CYCL 10 GM PAK PO ONE (08:10)
[2024-11-28] MEDS: InsuLIN REG 1unit/0.01ml Soln (100units/ml) IV ONE (08:11)
[2024-11-28 08:22] LABS: INR 1.15 (0.9-1.15); Partial Thromboplastin Time 50.9 SEC (24.5-34.5)
--- NOTE | 2024-11-28 09:02 | DVH ---
Bilateral lower extremity venous duplex Clinical History: Pain; raised d dimer Comparison: US BILAT LOWER DVT on DOS: 03/02/23 Technique: Duplex Doppler evaluation of the deep venous systems of both lower extremities from the common femora l veins to the popliteal veins including color Doppler and spectral/pulsed waveform analysis was perf ormed. Findings: RIGHT SIDE: The common femoral vein demonstrates appropriate compressibility and waveform variability. There is compressibility/patency of the great saphenous vein at the proximal thigh. The proximal and mid superficial femoral vein demonstrates appropriate compressibility and waveform v ariability. The distal right superficial femoral vein is incompletely compressible. The deep femoral vein demonstrates appropriate compressibility and waveform variability. The popliteal vein demonstrates appropriate compressibility and waveform variability. There is normal compressibility at the tibioperoneal trunk. LEFT SIDE: The common femoral vein demonstrates appropriate compressibility and waveform variability. There is c [id number] ompressibility/patency of the great saphenous vein at the proxim al thigh. The femoral vein demonstrates appropriate compressibility and waveform variability. The deep femoral vein demonstrates appropriate compressibility and waveform variability. The popliteal vein demonstrates appropriate compressibility and waveform variability. There is normal compressibility at the tibioperoneal trunk. Impression: Nonocclusive thrombus of the distal right superficial femoral vein. These preliminary critical findings were discussed with DEON Samson by electronics engineering technologist at [facility] exam.
[2024-11-28 10:02] LABS: Urine Bacteria None Seen /hpf (None Seen)
[2024-11-28 10:14] LABS: Urine Blood Negative /uL (Negative); Urine Clarity Clear (Clear); Urine Color Yellow (Yellow); Urine Mucus FEW (None Seen); Urine Protein, UAD TRACE (Negative); Urine Specific Gravity 1.019 (1.001-1.035); Urine Squamous Epithelial Cell FEW /hpf (<5); Urine Urobilinogen 4 mg/dL (Negative); Urine WBC 3 /HPF (0-3); Urine pH 5.5 (5.0-9.0)
[2024-11-28 10:23] LABS: Opiate Scree,Urine Pos (NEGATIVE)
[2024-11-28 10:25] LABS: Amphetamine Screen, Urine Pos (NEGATIVE); Barbiturate Scree,Urine Neg (NEGATIVE); Benzodiazephine Screen, Urine Neg (NEGATIVE); Cannabinoid Screen, Urine Neg (NEGATIVE); Cocaine Screen, Urine Neg (NEGATIVE); Phencyclidine Screen, Urine Neg (NEGATIVE)
[2024-11-28] MEDS: IOHEXOL 350 MG/ML 100ML IJ ONE (11:14)
--- NOTE | 2024-11-28 11:50 | DVH ---
CTA Chest with intravenous contrast INDICATION: PE COMPARISON: CT CT ANGIO CHEST CONTRAST on DOS: 03/01/23 TECHNIQUE: Multidetector spiral CTA of the chest was performed of the chest with intravenous contrast . PULMONARY ANGIOGRAPHY PROTOCOL was utilized using a bolus-tracking technique centered on the main p ulmonary artery. Axial, coronal and sagittal multiplanar and MIP reformats were performed. CONTRAST: Type of contrast: Omni 350 Contrast injected: 60ml Radiation dose : Chest: CTDI volume is 25 mGy. Dose-length product is 864 mGy*cm The dose indicators for CT are the volume computed Tomography (CT) dose Index (CTDIvol) and the dose Length product (DLP), and are measured in units of mGy and mGy-cm, respectively. These indicators are not patient dose, but values generated from the CT scanner acquisition factors. The report includes radiation exposure data for exposures received during this examination. Findings: Pulmonary artery: Bilateral pulmonary emboli involving the main pulmonary arteries as well as segmental and subsegmenta l branches. Large clot burden. Evidence of right heart strain. Lower neck: Normal thyroid. Lungs: Patchy ground-glass opacities in both lungs. Irregular nodular consolidation in the right midd le lobe. Atelectasis and consolidation in the left lower lobe. Partially calcified left lower lobe no dule. Atelectasis and scarring in the lung bases. Heart/Vascular Structures: Moderate cardiomegaly. Small pericardial effusion. Lymph Nodes: Mildly prominent prevascular lymph node measuring up to 11 mm in short axis. Pleura: Trace left pleural effusion. Musculoskeletal: No acute osseous abnormality. Soft tissues: Normal. Upper abdomen: Limited portions of the upper abdomen are unremarkable. IMPRESSION: 1. Large bilateral pulmonary emboli. Evidence of right heart strain. Interventional radiology evaluat ion is recommended. Clinical correlation and continued follow-up is recommended. 2. Patchy ground-glass opacities in both lungs. Irregular consolidation in the right middle lobe. Tr dmitry left pleural effusion with associated left basilar atelectasis and consolidation. Prominent preva scular lymph node. An infectious/inflammatory process is not excluded. Clinical correlation and cont inued follow-up is recommended. 3. Moderate cardiomegaly. Small pericardial effusion. Partially calcified left lower lobe pulmonary nodule. Critical Result: Pumonary Emboli Findings discussed with Dr. Quiles at 11/28/2024 11:35 AM, and acknowledged receipt and understanding of the findings. HS:Y
--- NOTE | 2024-11-28 12:09 | CONS ---
Pharmacy Clinical Information: CONTINUE SAME RATE 1000UNITS/HR UNTIL NEXT aPTT DRAW @1400 TODAY (CURRENT aPTT @0801 50.0) PER DR CHRIS WHITLOCK TO CHANGE FROM ACS HEPARIN PROTOCOL TO DVT/PE PROTOCOL PATIENT HAS DVT/PE RN MICHI AWARE AND WILL ALSO UPDATE PATIENT'S WEIGHT FRIDA CHRISTINE PHARMACIST Nov 28, 2024 12:09
[2024-11-28 14:58] LABS: INR 1.17 (0.9-1.15); Prothrombin Time 12.2 sec (9.3-11.8)
--- NOTE | 2024-11-28 15:26 | CONS ---
Pharmacy Clinical Information: HEPARIN PER PHARMACY SPOKE WITH DEON CONNOLLY REGARDING NEW DOSE CHANGE CURRENT RATE: 1000 UNITS/HR aPTT: 40 (1432 11/28/24) BOLUS: NO NEW RATE INCREASE BY 200UNITS/HR: 1200 UNITS/HR aPTT TO BE DRAWN 6 HOURS FROM DOCUMENTATION OF NEW RATE FRIDA ESTRADA PHARMACIST Nov 28, 2024 15:26
--- NOTE | 2024-11-28 15:44 | DVHSR ---
APPROVED REPORT EXAM: Two-dimensional and M-mode echocardiogram with Doppler and color Doppler. Blood Pressure: 119/89 mmHg INDICATION look for RV strain RISK FACTORS Height: 71, Weight: 220 DIMENSIONS LVDd4.9 (3.8-5.7cm)LA (2D)3.9 (1.9-4.0cm)Aortic Root3.9 (2.0-3.7cm) LVDs3.8 (2.5-4.0cm)LA (MM) (1.9-4.0cm)Aortic Cusp Exc2.2 (1.5-2.0cm) EF (%) 45.0 (55-70%)Rt. Atrium6.0 (1.9-4.0cm)Asc. Aorta3.2 cm Mitral Valve MitralMitral Stenosis E/A ratio0.02D MVAcm2 Aortic Valve Aortic ValveAortic Stenosis V10.59m/Zoe Mean GR.3mmHg V21.05m/Zoe Peak GR.4mmHg LVOT Diameter2.4 (1.8-2.4cm)Doppler AVA2.54cm2 Tricuspid Valve TR Velocity3.56m/s [id number] Conclusion lvef 40% abnormal interventricular septal motion RV marked enlargement and dysfunction right atrium enlarged trivial pericardial effusion noted moderate tricuspid regurg
--- NOTE | 2024-11-28 15:51 | DVHINCON2 ---
GALI RODAS [facility] 11/28/24 1551: Date Seen: Nov 28, 2024 Referring Physician MD Etta Reason for Consultation Elevated troponin History of Present Illness This is a 64-year-old male patient who presents to the emergency room for chief complaint of worsening shortness of breath for two weeks. The patient also mentions one episode of chest pain that he states was unprovoked, intermittent, sharp in nature, left-sided and nonradiating that happened three days ago while doing yard work. He denies any chest pain since. Cardiology has been consulted at this time for elevated troponin. Initial twelve lead electrocardiogram reveals sinus tachycardia with right bundle branch block. Initial troponin level of 190ng/L with slight up trend in current peak level at 205ng/L. Significant past medical history includes pulmonary embolism in 2022, skin polk status post skin grafts, tobacco use, amphetamine use, and obesity. The patient reports being diagnosed with pulmonary embolism in the past in which he was sent home on anticoagulation. He admits he ran out of medication and never went to refill it because he does not like doctors. Past Medical History Past medical history reviewed. No other significant than mentioned above. Past Surgical History Multiple skin grafts Family History: Chronic obstructive pulmonary disease G8 MOTHER, Diabetes mellitus G8 FATHER, Family History Family history reviewed. Social History Patient has a 23.5 pack-year history, smokes approximately half a pack per day Patient admits to occasional methamphetamine use, per patient last time was approximately three weeks ago. Toxicology screen positive for amphetamines on this admission Patient admits to social alcohol use Allergies: Coded Allergies: NO KNOWN ALLERGIES (Unverified , 03/01/23) Home Meds Active Scripts Apixaban Base (Eliquis Starter Pack) 5 Mg Tab, 5 MG PO BID, #70 TAB 1 Refill take 2 tablets twice per day for 7 days then 1 tab twice per day until finish. Prov:SHAYNE ALMANZA MD 03/05/23 Home Meds Patient denies taking any prescribed medications Current Medications Current Medications Medications (Trade) Dose Ordered Sig/Sarahi Route PRN Reason Start Time Stop Time Status Last Admin Heparin Sodium/ Dextrose 250 ml @ 10 mls/hr Q24H IV 11/28/24 01:45 11/28/24 11:44 DC 11/28/24 02:20 Sodium Chloride 1,000 ml @ 60 mls/hr [id number] IV 11/28/24 02:15 11/28/24 11:32 DC 11/28/24 02:15 Acetaminophen (Tylenol Tablet) 650 mg Q6HP PRN PO PAIN SCALE 1-3 OR TEMP>100.4 11/28/24 02:15 Sodium Chloride 1,000 ml @ 75 mls/hr [id number] IV 11/28/24 11:45 11/28/24 11:45 Heparin Sodium/ Dextrose 250 ml @ 10 mls/hr Q24H IV 11/28/24 11:45 11/28/24 15:16 DC 11/28/24 11:45 Heparin Sodium/ Dextrose 250 ml @ 12 mls/hr [id number] IV 11/28/24 15:16 11/28/24 15:24 Review of Systems Constitutional: No symptom reported Ears, Nose, & Throat: No symptom reported Eyes: No symptom reported Neurological: No symptoms reported Pulmonary/Respiratory: Shortness of breath Cardiovascular: No symptom reported Gastrointestinal: No symptom reported Genitourinary: No symptom reported Musculoskeletal: No symptom reported Skin: No symptom reported Psychiatric: No symptom reported Endocrine: No symptom reported Hematologic/Lymphatic: No symptom reported Vital Signs Vital Signs Date Time Temp Pulse Resp B/P (MAP) Pulse Ox O2 Delivery O2 Flow Rate FiO2 11/28/24 13:58 98.2 97 22 133/86 (102) 97 98.2 11/28/24 08:10 Nasal Cannula* 4 36 Physical Exam General Appearance: Cooperative. Obese Pulmonary/Respiratory: Clear, bilateral breaths sounds. Cardiovascular/Chest: Regular rate and rhythm. Peripheral Pulses: 2+ Radial (R). 2+ Radial (L). 1+ Pedal (R). 1+ Pedal (L) Abdominal Exam: Normal bowel sounds. Ankle Exam: Negative ankle edema Lower extremities: Negative lower extremity edema Neuro/Mental Status: A/OX4, coherent. Thoughts/Psych: Normal thought pattern. Appropriate mood and affect. Good judgment and insight. Appearance: No acute distress. Skin Exam: Discoloration to bilateral upper and lower extremities. Patient has a history of skin grafts to upper extremities Labs/Diagnostic Data Labs Test 11/28/24 14:32 11/28/24 11:59 11/28/24 09:55 11/28/24 05:04 Range/Units Prothrombin Time 12.2 H 9.3-11.8 sec Prothrombin Time INR 1.17 H 0.9-1.15 Activated Partial Thromboplast Time 40.0 H 24.5-34.5 SEC Potassium Level 4.1 # 3.5-5.1 mmol/L Urine Color Yellow Yellow Urine Clarity Clear Clear Urine pH 5.5 5.0-9.0 Urine Specific [place] 1.019 1.001-1.035 Urine Protein Trace H Negative Urine Ketones Trace Negative Urine Blood Negative Negative /uL Urine Nitrite Negative Negative Urine Bilirubin Negative Negative Urine Urobilinogen 4 H Negative mg/dL Urine Leukocyte Esterase Negative Negative /uL Urine RBC 1 0 - 3 /hpf Urine Microscopic WBC 3 0-3 /HPF Urine Squamous Epithelial Cells Few <5 /hpf Urine Bacteria None seen None Seen /hpf Urine Mucus Few None Seen Urine Glucose 2+ H Normal mg/dL Urine Opiates Screen Pos NEGATIVE Urine Fentanyl Screen Neg NEGATIVE Urine Barbiturates Screen Neg NEGATIVE Urine Phencyclidine Screen Neg NEGATIVE Urine Amphetamines Screen Pos NEGATIVE Urine Benzodiazepines Screen Neg NEGATIVE Urine Cocaine Screen Neg NEGATIVE Urine Cannabinoids Screen Neg NEGATIVE White Blood Count 11.4 H 4.4-10.8 10^3/uL Red Blood Count 5.54 4.5-5.90 10^6/uL Hemoglobin 16.2 13.5-17.5 g/dL Hematocrit 48.3 41.0-53.0 % Mean Corpuscular Volume 87.2 80.0-100.0 fL Mean Corpuscular Hemoglobin 29.2 28.0-32.0 pg Mean Corpuscular Hemoglobin Concent 33.5 32.0-36.0 g/dL Red Cell Distribution Width 14.9 H 11.8-14.3 % Platelet Count 261 140-450 10^3/uL Mean Platelet Volume 8.4 6.9-10.8 fL Neutrophils (%) (Auto) 66.8 37.0-80.0 % Lymphocytes (%) (Auto) 18.4 10.0-50.0 % Monocytes (%) (Auto) 14.0 H 0.0-12.0 % Eosinophils (%) (Auto) 0.4 0.0-7.0 % Basophils (%) (Auto) 0.4 0.0-2.0 % Neutrophils # (Auto) 7.6 1.6-8.6 10 ^3/uL Lymphocytes # (Auto) 2.1 0.4-5.4 10 ^3/uL Monocytes # (Auto) 1.6 H 0-1.3 10 ^3/uL Eosinophils # (Auto) 0.1 0-0.8 10 ^3/uL Basophils # (Auto) 0 0-0.2 10 ^3/uL Nucleated Red Blood Cells 0.1 % Sodium Level 136 136-145 mmol/L Chloride Level 110 H 98-107 mmol/L Carbon Dioxide Level 21 20-31 mmol/L Anion Gap 5 5-15 Blood Urea Nitrogen 22 9-23 mg/dL Creatinine 2.08 H 0.700-1.30 mg/dL Glomerular Filtration Rate Calc 35 >90 mL/min BUN/Creatinine Ratio 10.6 10.0-20.0 Serum Glucose 93 74-106 mg/dL Hemoglobin A1c 6.4 H <5.7 % A1C Calcium Level 9.3 8.7-10.4 mg/dL Magnesium Level 2.1 1.6-2.6 mg/dL Thyroid Stimulating Hormone (TSH) 0.88 0.55-4.78 uIU/mL Test 11/28/24 02:20 11/28/24 00:15 11/27/24 23:24 Range/Units Troponin I High Sensitivity 205 *H </=54 ng/L Triglycerides Level 112 < 150 mg/dL Cholesterol Level 161 < 200 mg/dL LDL Cholesterol 105 H < 100 mg/dL HDL Cholesterol 36 L 40-59 mg/dL D-Dimer, Quantitative 2.03 H 0.0-0.49 mg/L FEU Total Bilirubin 0.9 0.2-1.0 mg/dL Aspartate Amino Transferase (AST) 70 H 13-40 U/L Alanine Aminotransferase (ALT) 82 H 7-40 U/L Alkaline Phosphatase 102 46-116 U/L B-Type Natriuretic Peptide 663.03 0-100 pg/mL Total Protein 7.2 5.7-8.2 g/dL Albumin 4.4 3.2-4.8 g/dL Assessment Chronic thromboembolic pulmonary hypertension (CTEPH) Acute hypoxic respiratory failure secondary to bilateral pulmonary emboli Acute on chronic HFrEF, NYHA class III NSTEMI Hyperlipidemia, newly diagnosed Hyperkalemia Acute kidney injury Prediabetes Methamphetamine use Tobacco use Obesity Medical noncompliance Plan/Recommendation We will continue with the following plan/recommendations (Dr. Malave): Patient seen and examined at bedside with . Transthoracic echocardiogra m reveals EF of 40%, RVSP 87 mmHg. Unable to initiate full guideline directed medical therapy for CHF given hyperkalemia and poor renal function. We will hold off on KESHA inhibitor/Arb/ARNI, MRI (spironolactone), and Jardiance given poor renal function. Initiate beta-you when patient euvolemic. PESI score: 73 points, class II, low risk (1.7-3.5% 30 day mortality in this group). Patient had a prior visit to this facility in [address] angiogram confirmed bilateral pulmonary emboli at that time as well. MD reviewed previous echocardiogram as well as prior chest CT. Imaging similar to previous visit without any significant changes. We will recommend to continue heparin drip per PE protocol and transitioned to Eliquis therapy prior to discharge. There is no further inpatient cardiac workup indicated at this time. Thank you for allowing us to care for this patient. Please call with any questions or concerns. Critical care time spent: 40 minutes This medical document was created using an electronic medical record system with voice recognition software and computerized dictation system. Although this document has been carefully reviewed, there might still be some phonetic and typographical errors. Occasional wrong-word or ``sound-alike substitutions may have occurred due to the inherent limitations of voice recognition software. These areas are purely typographical due to imperfections of the software programs and do not reflect any compromise in the patient's medical care. Ple ase read the chart carefully and recognize, using context, where these substitutions have occurred. Plan discussed with: Patient NYHA Physical activity limitations: NA Date of Service: Nov 28, 2024 Billing Provider: GALI RODAS FIELD SALES EXECUTIVE Cardiology Common Codes: 15631-IPTYTBB INP/OBS CARE (High) Cardiology Consultation Codes: [id number] CONSULT <45MIN DEB MALAVE MD 11/28/24 4528: Family History: Chronic obstructive pulmonary disease G8 MOTHER, Diabetes mellitus G8 FATHER, Allergies: Coded Allergies: NO KNOWN ALLERGIES (Unverified , 03/01/23) Home Meds Active Scripts Apixaban Base (Eliquis Starter Pack) 5 Mg Tab, 5 MG PO BID, #70 TAB 1 Refill take 2 tablets twice per day for 7 days then 1 tab twice per day until finish. Prov:SHAYNE ALMANZA MD 03/05/23 Plan/Recommendation PT SEEN WITH EQUIPMENT SALES SPECIALIST REVIEWED CTA NOW AND 2YEARS AGO PT HAS CHRONIC CTEPH OLD PE BILATERAL QUITE EXTENSIVE SEVERE PULM HTN NON COMPLIANT ACTIVE DRUGS HIGH RISK PT LASIX HEPARIN TX TO DOAC AT SOME POINT CONSIDER REVATIO/ PULM EVAL Plan discussed with: Patient RODASGALI Nov 28, 2024 15:51 DEB MALAVE MD Nov 28, 2024 17:37
--- NOTE | 2024-11-28 18:59 | DVHPNRES ---
Progress Note Date Seen: Nov 28, 2024 Resident Creating Document: CHRIS MAYES MARISA Has the PT tested + for MRSA If YES, has PT been informed?: No Medical Necessity Reason Pt with a Central, PICC or Fol: No Subjective Review of Systems Patient seen and examined at bedside. Patient is still complaining of shortness of breaths and chest discomfort. Patient reports: No new complaints Changes from previous H/P or p: No Changes Objective vital signs Vital Sign Date Time Temp Pulse Resp B/P (MAP) Pulse Ox O2 Delivery O2 Flow Rate FiO2 11/28/24 17:00 98.2 101 19 123/85 (98) 96 98.2 11/28/24 13:58 Nasal Cannula* 4 36 Total Intake and Output 11/27/24 11/27/24 11/28/24 14:59 22:59 06:59 Intake Total 40 ml Balance 40 ml medications Current Medications Medications Dose Ordered Sig/Sarahi Route Start Time Stop Time Status Last Admin Dose Admin Acetaminophen 650 mg Q6HP PRN PO 11/28/24 02:15 Sodium Chloride 1,000 ml @ 75 mls/hr [id number] IV 11/28/24 11:45 11/28/24 11:45 75 MLS/HR Heparin Sodium/ Dextrose 250 ml @ 12 mls/hr [id number] IV 11/28/24 15:16 11/28/24 15:24 12 MLS/HR Examination General Appearance: Alert, Oriented X3, Cooperative, No acute distress HEENT: Atraumatic, PERRLA, EOMI, Mucous membrane moist/pink Respiratory: Clear to auscultation, Normal air movement Cardiovascular: Regular rate, Normal S1, Normal S2, No murmurs, no chest wall tenderness Abdominal: Normal bowel sounds, Soft, No tenderness, No hepatospenomegaly, No masses Extremities: Bilateral lower limb trace pedal edema Skin: No rashes, No breakdown, No significant lesion Neuro: Normal gait, Normal speech, Strength at 5/5 X4 ext, Normal tone, Sensation intact, Cranial nerves 3-12 NL, Reflexes 2+ Psych/Mental Status: Mental status NL, Mood NL laboratory and microbiology Laboratory Tests 11/28/24 11:59 11/28/24 05:04 Test 11/28/24 05:04 Range/Units Serum Glucose 93 74-106 mg/dL Labs and/or images reviewed: Labs reviewed by me, Image(s) reviewed by me Problem List/Assessment/Plan Problem List/Assessment/Plan Acute hypoxic respiratory failure, likely due to bilateral pulmonary emboli Bilateral massive Pulmonary emboli Acute on chronic HFrEF, NYHA class III NSTEMI, type 2, likely due to above Hyperlipidemia, newly diagnosed TAHIRA, on likely VMN Prediabetes Methamphetamine use disorder Tobacco use Obesity DVT of right femoral vein Medical noncompliance Hyperkalemia Pericardial effusion * Doppler ultrasound of lower limb shows, Nonocclusive thrombus of the distal right superficial femoral vein * CT angio of chest shows, large bilateral pulmonary emboli. Evidence of right heart strain, small pericardial effusion * Echocardiogram shows marked RV enlargement, abnormal interventricular septal motion with LVEF 40% * EKGs shows, RBBB with right axis deviation, otherwise no significant ST or T- wave changes * PESI score, 8.9 % (high risk) Plan/recommendation Cardiology consulted, recommended medical management IR consulted Heparin therapeutic dose IV fluid DIET: NPO midnight DVT PROPHYLAXIS: Therapeutic dose heparin CODE STATUS: Goal of care discussed for more than 18 minutes, full code DISPOSITION: Telemetry Patient's status and plan discussed with the patient. Case discussed with Dr. Rivera. Plan discussed with: Patient, Other (RN) My Orders My Orders Orders - CHRIS MAYES Procedure Category Date Status Time Bilat Lower Dvt US 11/28/24 Resulted 07:47 * Radiologist Consult CONS 11/28/24 Transmitted 09:[address] 11/28/24 Resulted Contrast 10:33 Sodium Chloride 0.9% PHA 11/28/24 In Process 11:45 Heparin Per Pharmacy BRENDA 11/28/24 In Process Protocol 12:00 Heparin Drip/D5w PHA 11/28/24 In Process 100units/Ml 15:16 Heparin Per Pharmacy BRENDA 11/28/24 In Process Protocol 15:17 PTPTT LAB 11/28/24 Logged 21:00 Date of Service: Nov 28, 2024 Billing Provider: SANTIAGO RIVERA MD Common Visit Codes: [id number] INP/OBS CARE(HIGH) CHRIS MAYES RESDIENT Nov 28, 2024 18:59 SANTIAGO RIVERA MD Nov 29, 2024 20:08
[2024-11-28 21:26] LABS: INR 1.14 (0.9-1.15); Partial Thromboplastin Time 30.7 SEC (24.5-34.5); Prothrombin Time 11.9 sec (9.3-11.8)
--- NOTE | 2024-11-28 21:41 | CONS ---
Pharmacy Clinical Information: NEW HEP RATE IS 1500 UNITS/HR OR 15 ML/HR AND GIVE HEP BOLUS 5,000 UNITS SINCE APTT = 30.7 @2100 11/28 PER RX PROTOCOL. NEXT APTT YVONNE @0300 11/29 OLD RATE 12 ML/HR INCREASED NEW RATE TO 15ML/HR OR 1500 UNITS/HR AND REPEATED ORDER BACK PER ARIA CRUZ RN PHARMACIST Nov 28, 2024 21:41
[2024-11-29] VITALS (8 sets, daily range): BP systolic 116–155; BP diastolic 85–110; PULSE 70–113; RESP 18–22; TEMP 97.4–98.8; O2SAT 91–99
[2024-11-29] MEDS: MELATONIN 5 MG TAB PO ONE (01:45)
[2024-11-29 07:23] LABS: Basophils # (auto) 0.1 10 ^3/uL (0-0.2); Basophils % (auto) 0.5 % (0.0-2.0); Eosinophils # (auto) 0 10 ^3/uL (0-0.8); Eosinophils % (auto) 0.4 % (0.0-7.0); Hematocrit 43.9 % (41.0-53.0); Hemoglobin 14.5 g/dL (13.5-17.5); Lymphocytes # (auto) 1.5 10 ^3/uL (0.4-5.4); Lymphocytes % (auto) 12.7 % (10.0-50.0); Mean Corpuscular Hemoglobin 28.9 pg (28.0-32.0); Mean Corpuscular Hgb Conc. 33.2 g/dL (32.0-36.0); Mean Corpuscular Volume 87.1 fL (80.0-100.0); Monocytes # (auto) 1.5 10 ^3/uL (0-1.3); Monocytes % (auto) 12.6 % (0.0-12.0); Neutrophils % (auto) 73.8 % (37.0-80.0); Platelet Count (auto) 223 10^3/uL (140-450); Red Blood Cells 5.04 10^6/uL (4.5-5.90); Red Cell Distribution Width 14.8 % (11.8-14.3); White Blood Cell 12.2 10^3/uL (4.4-10.8)
[2024-11-29 07:47] LABS: Albumin 3.8 g/dL (3.2-4.8); Alkaline Phosphatase 114 U/L (46-116); Anion Gap 9 (5-15); BUN/Creatinine Ratio 13.5 (10.0-20.0); Calcium 9.2 mg/dL (8.7-10.4); Potassium 4.7 mmol/L (3.5-5.1); Total Protein 6.2 g/dL (5.7-8.2)
[2024-11-29 07:55] LABS: Alanine Aminotransferase 80 U/L (7-40); Aspartate Aminotransferase 80 U/L (13-40); Blood Urea Nitrogen 24 mg/dL (9-23); Carbon Dioxide 18 mmol/L (20-31); Chloride 109 mmol/L (98-107); Glucose 113 mg/dL (74-106); Sodium 136 mmol/L (136-145)
[2024-11-29 07:59] LABS: INR 1.19 (0.9-1.15); Prothrombin Time 12.4 sec (9.3-11.8)
[2024-11-29 08:02] LABS: Partial Thromboplastin Time 91.5 SEC (24.5-34.5)
--- NOTE | 2024-11-29 08:15 | CONS ---
Pharmacy Clinical Information: HOLD HEPARIN INFUSION 1 HOUR SINCE APTT = 91.5 @0644 11/29 PER RX PROTOCOL. NEW HEP RATE FROM 15ML/HR TO 1200 UNITS/HR OR 12 ML/HR RESUME @0910 11/29 AND APTT WILL BE ORDER SIX HOURS FROM STARTING NEW HEP RATE ORDER REPEAT BACK PER ARIA BENJAMIN RN PHARMACIST Nov 29, 2024 08:15
[2024-11-29] MEDS: HEPARIN DRIP/D5W 100UNITS/ML 250 ML IV SCH ×2 (09:16→15:54)
[2024-11-29] MEDS: ACETAMINOPHEN 325 MG TAB PO PRN (09:53)
[2024-11-29] MEDS: FUROSEMIDE 20 MG TAB PO ONE (12:58)
--- NOTE | 2024-11-29 13:20 | ECG ---
[facility] Test Date: 2024-11-27 Test Time: 23:19:10 Pat Name: MARYAM BINGHAM Department: ER Room: 0294T B Gender: M Turner Off: DAMION : 1960 Requested By: LEONARDO RICHARDSON Order Number: [id number] Reading MD: Griffin Roberson Measurements Intervals Pierce Rate: 116 P: 62 WA: 155 QRS: -146 QRSD: 152 T: 106 QT: 364 QTc: 506 Interpretive Statements Sinus tachycardia Right bundle branch block Abnormal T, consider ischemia, lateral leads Electronically Signed On 11-29-2024 13:29:05 PDT by Griffin Roberson Please click the below link to view image of tracing.
[2024-11-29 15:36] LABS: INR 1.17 (0.9-1.15); Partial Thromboplastin Time 47.3 SEC (24.5-34.5); Prothrombin Time 12.2 sec (9.3-11.8)
--- NOTE | 2024-11-29 16:08 | CONS ---
Pharmacy Clinical Information: NEW RATE 14 ML/HR OR 1400 UNITS/HR SINCE APTT = 47.3 @1503 11/29 PER RX PROTOCOL. NEXT APTT YVONNE @2200 ON 11/29 INCREASED RATE FROM 12ML/HR TO 14 ML/HR AND REPEATED ORDER BACK ARIA BENJAMIN RN PHARMACIST Nov 29, 2024 16:08
--- NOTE | 2024-11-29 18:56 | DVHPNRES ---
Progress Note Date Seen: Nov 29, 2024 Resident Creating Document: CHRIS MAYES MARISA Has the PT tested + for MRSA If YES, has PT been informed?: No Medical Necessity Reason Pt with a Central, PICC or Fol: No Subjective Review of Systems Patient seen and examined at the bedside. Patient is still complained of chest shortness of breaths Patient reports: No new complaints, Feels better Changes from previous H/P or p: Changes Objective vital signs Vital Sign Date Time Temp Pulse Resp B/P (MAP) Pulse Ox O2 Delivery O2 Flow Rate FiO2 11/29/24 16:30 98.1 70 22 151/93 (112) 91 98.1 11/29/24 08:00 Nasal Cannula* 4 36 Total Intake and Output 11/28/24 11/28/24 11/29/24 15:00 23:00 07:00 Intake Total 375 ml 786 ml 1850 ml Output Total 300 ml 750 ml Balance 375 ml 486 ml 1100 ml medications Current Medications Medications Dose Ordered Sig/Sarahi Route Start Time Stop Time Status Last Admin Dose Admin Acetaminophen 650 mg Q6HP PRN PO 11/28/24 02:15 11/29/24 09:53 650 MG Sodium Chloride 1,000 ml @ 75 mls/hr [id number] IV 11/28/24 11:45 11/29/24 00:28 75 MLS/HR Furosemide 20 mg DAILY PO 11/30/24 10:00 Empaglifozin 10 mg DAILY PO 11/30/24 10:00 Heparin Sodium/ Dextrose 250 ml @ 14 mls/hr [id number] IV 11/29/24 16:00 11/29/24 18:34 14 MLS/HR Examination General Appearance: Alert, Oriented X3, Cooperative, No acute distress HEENT: Atraumatic, PERRLA, EOMI, Mucous membrane moist/pink Respiratory: Clear to auscultation, Normal air movement Cardiovascular: Regular rate, Normal S1, Normal S2, No murmurs, no chest wall tenderness Abdominal: Normal bowel sounds, Soft, No tenderness, No hepatospenomegaly, No masses Extremities: Bilateral lower limb trace pedal edema Skin: No rashes, No breakdown, No significant lesion Neuro: Normal gait, Normal speech, Strength at 5/5 X4 ext, Normal tone, Sensation intact, Cranial nerves 3-12 NL, Reflexes 2+ Psych/Mental Status: Mental status NL, Mood NL laboratory and microbiology Laboratory Tests 11/29/24 06:44 Test 11/29/24 06:44 Range/Units Serum Glucose 113 H 74-106 mg/dL Labs and/or images reviewed: Labs reviewed by me, Image(s) reviewed by me Problem List/Assessment/Plan Problem List/Assessment/Plan Acute hypoxic respiratory failure, likely due to bilateral pulmonary emboli Chronic Bilateral massive Pulmonary emboli Acute on chronic HFrEF, NYHA class III NSTEMI, type 2, likely due to above Hyperlipidemia, newly diagnosed TAHIRA, on likely VMN Prediabetes Methamphetamine use disorder Tobacco use Obesity DVT of right femoral vein Medical noncompliance Hyperkalemia Pericardial effusion * Doppler ultrasound of lower limb shows, Nonocclusive thrombus of the distal right superficial femoral vein * CT angio of chest shows, large bilateral pulmonary emboli (similar finding to previous CT angio). Evidence of right heart strain, small pericardial effusion * Echocardiogram shows marked RV enlargement, abnormal interventricular septal motion with LVEF 40% * EKGs shows, RBBB with right axis deviation, otherwise no significant ST or T- wave changes * PESI score, 8.9 % (high risk) Plan/recommendation Cardiology consulted, recommended medical management IR consulted, recommended medical management Heparin therapeutic dose Jardiance 10 mg daily, lisinopril 5 mg daily, spironolactone 25 mg daily DIET: Cardiac diet DVT PROPHYLAXIS: Therapeutic dose heparin CODE STATUS: Goal of care discussed for more than 18 minutes, full code DISPOSITION: Telemetry Patient's status and plan discussed with the patient. Case discussed with Dr. Rivera. Plan discussed with: Patient, Other (RN) My Orders My Orders Orders - CHRIS MAYES RESSANDRA Procedure Category Date Status Time Heparin Per Pharmacy [facility] 11/28/24 In Process Protocol 22:02 Heparin Per Pharmacy [facility] 11/29/24 In Process Protocol 08:12 Furosemide Tablet PHA 11/30/24 In Process (Lasix Tablet) 10:00 Empagliflozin PHA 11/30/24 In Process (Jardiance) 10:00 Heparin Drip/D5w PHA 11/29/24 In Process 100units/Ml 16:00 PTPTT LAB 11/29/24 Logged 22:00 Heparin Per Pharmacy [facility] 11/29/24 In Process Protocol 16:05 Date of Service: Nov 29, 2024 Billing Provider: SANTIAGO RIVERA MD Common Visit Codes: [id number] INP/OBS CARE(HIGH) CHRIS MAYES Nov 29, 2024 18:56 SANTIAGO RIVERA MD Nov 29, 2024 20:20
[2024-11-29] MEDS: METOPROLOL TARTRATE 25 MG TAB PO ONE (19:40)
[2024-11-29] MEDS: SPIRONOLACTONE 25 MG TAB PO ONE (19:41)
[2024-11-29 23:06] LABS: INR 1.19 (0.9-1.15); Prothrombin Time 12.4 sec (9.3-11.8)
[2024-11-30 01:00] VITALS: BP 127/105; PULSE 90; RESP 18; TEMP 98; O2SAT 96
[2024-11-30 05:00] VITALS: BP 153/102; PULSE 94; RESP 18; TEMP 97.8; O2SAT 95
[2024-11-30 07:12] LABS: Basophils # (auto) 0 10 ^3/uL (0-0.2); Basophils % (auto) 0.1 % (0.0-2.0); Eosinophils # (auto) 0 10 ^3/uL (0-0.8); Eosinophils % (auto) 0.3 % (0.0-7.0); Hematocrit 46.2 % (41.0-53.0); Hemoglobin 15.1 g/dL (13.5-17.5); Lymphocytes # (auto) 1.4 10 ^3/uL (0.4-5.4); Lymphocytes % (auto) 10.7 % (10.0-50.0); Mean Corpuscular Hemoglobin 28.6 pg (28.0-32.0); Mean Corpuscular Hgb Conc. 32.7 g/dL (32.0-36.0); Mean Corpuscular Volume 87.4 fL (80.0-100.0); Monocytes # (auto) 1.7 10 ^3/uL (0-1.3); Monocytes % (auto) 13.2 % (0.0-12.0); Neutrophils # (auto) 9.9 10 ^3/uL (1.6-8.6); Neutrophils % (auto) 75.7 % (37.0-80.0); Platelet Count (auto) 253 10^3/uL (140-450); Red Blood Cells 5.28 10^6/uL (4.5-5.90); Red Cell Distribution Width 14.8 % (11.8-14.3)
[2024-11-30 07:24] LABS: INR 1.2 (0.9-1.15); Partial Thromboplastin Time 50.8 SEC (24.5-34.5); Prothrombin Time 12.5 sec (9.3-11.8)
[2024-11-30 07:35] LABS: Albumin 4.2 g/dL (3.2-4.8); Anion Gap 12 (5-15); BUN/Creatinine Ratio 13.4 (10.0-20.0); Carbon Dioxide 23 mmol/L (20-31); Chloride 104 mmol/L (98-107); Potassium 4.8 mmol/L (3.5-5.1); Sodium 139 mmol/L (136-145); Total Protein 6.9 g/dL (5.7-8.2)
[2024-11-30 07:36] LABS: Alanine Aminotransferase 95 U/L (7-40); Alkaline Phosphatase 125 U/L (46-116); Aspartate Aminotransferase 86 U/L (13-40); Bilirubin, Total 1.9 mg/dL (0.2-1.0); Blood Urea Nitrogen 23 mg/dL (9-23); Glucose 115 mg/dL (74-106)
[2024-11-30 08:00] VITALS: PULSE 107; PULSE 99; RESP 18; O2SAT 98
[2024-11-30] MEDS: EMPAGLIFLOZIN 10 MG TAB PO SCH (08:22)
[2024-11-30] MEDS: METOPROLOL TARTRATE 25 MG TAB PO SCH (08:22)
[2024-11-30] MEDS: SPIRONOLACTONE 25 MG TAB PO SCH (08:23)
[2024-11-30] MEDS: FUROSEMIDE 20 MG TAB PO SCH (08:23)
[2024-11-30 09:00] VITALS: BP 143/102; PULSE 107; RESP 20; TEMP 98.7; O2SAT 91
[2024-11-30 12:43] LABS: INR 1.25 (0.9-1.15); Partial Thromboplastin Time 47.8 SEC (24.5-34.5)
[2024-11-30 13:00] VITALS: BP 141/103; PULSE 111; RESP 20; TEMP 98; O2SAT 91
--- NOTE | 2024-11-30 14:57 | DVHPNRES ---
Progress Note Date Seen: Nov 30, 2024 Resident Creating Document: CHRIS MAYES MARISA Has the PT tested + for MRSA If YES, has PT been informed?: No Medical Necessity Reason Pt with a Central, PICC or Fol: No Subjective Review of Systems Patient seen and examined at bedside. Patient is feeling better since admission. Patient reports: No new complaints Changes from previous H/P or p: Changes Objective vital signs Vital Sign Date Time Temp Pulse Resp B/P (MAP) Pulse Ox O2 Delivery O2 Flow Rate FiO2 11/30/24 08:23 143/102 11/30/24 08:22 107 11/30/24 05:00 97.8 18 95 97.8 11/29/24 20:00 Nasal Cannula* 4 36 Total Intake and Output 11/29/24 11/29/24 11/30/24 15:00 23:00 07:00 Intake Total 1245 ml 1763 ml Output Total 600 ml 850 ml Balance 645 ml 913 ml medications Current Medications Medications Dose Ordered Sig/Sarahi Route Start Time Stop Time Status Last Admin Dose Admin Acetaminophen 650 mg Q6HP PRN PO 11/28/24 02:15 11/29/24 19:40 650 MG Sodium Chloride 1,000 ml @ 75 mls/hr [id number] IV 11/28/24 11:45 11/29/24 19:42 75 MLS/HR Furosemide 20 mg DAILY PO 11/30/24 10:00 11/30/24 08:23 20 MG Empaglifozin 10 mg DAILY PO 11/30/24 10:00 11/30/24 08:22 10 MG Spironolactone 25 mg DAILY PO 11/30/24 10:00 11/30/24 08:23 25 MG Metoprolol Tartrate 12.5 mg BID PO 11/30/24 10:00 11/30/24 08:22 12.5 MG Apixaban 5 mg BID PO 11/30/24 22:00 Examination General Appearance: Alert, Oriented X3, Cooperative, No acute distress HEENT: Atraumatic, PERRLA, EOMI, Mucous membrane moist/pink Respiratory: Clear to auscultation, Normal air movement Cardiovascular: Regular rate, Normal S1, Normal S2, No murmurs, no chest wall tenderness Abdominal: Normal bowel sounds, Soft, No tenderness, No hepatospenomegaly, No masses Extremities: Bilateral lower limb trace pedal edema Skin: No rashes, No breakdown, No significant lesion Neuro: Normal gait, Normal speech, Strength at 5/5 X4 ext, Normal tone, Sensation intact, Cranial nerves 3-12 NL, Reflexes 2+ Psych/Mental Status: Mental status NL, Mood NL laboratory and microbiology Laboratory Tests 11/30/24 05:47 Test 11/30/24 05:47 Range/Units Serum Glucose 115 H 74-106 mg/dL Labs and/or images reviewed: Labs reviewed by me, Image(s) reviewed by me Problem List/Assessment/Plan Problem List/Assessment/Plan Acute hypoxic respiratory failure, likely due to bilateral pulmonary emboli Chronic Bilateral massive Pulmonary emboli Acute on chronic HFrEF, NYHA class III NSTEMI, type 2, likely due to above Hyperlipidemia, newly diagnosed TAHIRA, on likely VMN Prediabetes Methamphetamine use disorder Tobacco use Obesity DVT of right femoral vein Medical noncompliance Hyperkalemia Pericardial effusion * Doppler ultrasound of lower limb shows, Nonocclusive thrombus of the distal right superficial femoral vein * CT angio of chest shows, large bilateral pulmonary emboli (similar finding to previous CT angio). Evidence of right heart strain, small pericardial effusion * Echocardiogram shows marked RV enlargement, abnormal interventricular septal motion with LVEF 40% * EKGs shows, RBBB with right axis deviation, otherwise no significant ST or T- wave changes * PESI score, 8.9 % (high risk) Plan/recommendation Cardiology consulted, recommended medical management IR consulted, recommended medical management Discontinued heparin drip, Eliquis 5 mg b.i.d. Jardiance 10 mg daily, lisinopril 5 mg daily, spironolactone 25 mg daily DIET: Cardiac diet DVT PROPHYLAXIS: Eliquis 5 mg b.i.d. CODE STATUS: Goal of care discussed for more than 18 minutes, full code DISPOSITION: Telemetry Patient's status and plan discussed with the patient. Case discussed with Dr. Quevedo. Plan discussed with: Patient, Other (RN) My Orders My Orders Orders - CHRIS MAYES Procedure Category Date Status Time Heparin Per Pharmacy [facility] 11/29/24 In Process Protocol 16:05 Spironolactone PHA 11/30/24 In Process (Aldactone) 10:00 Metoprolol Tartrate PHA 11/30/24 In Process Tablet (Lopressor Ta 10:00 Complete Blood Count LAB 12/01/24 Verified 04:00 Heparin Per Pharmacy [facility] 11/30/24 In Process Protocol 08:43 Apixaban (Eliquis) PHA 11/30/24 In Process 22:00 Date of Service: Nov 30, 2024 Billing Provider: CALI QUEVEDO MD Common Visit Codes: NOT BILLABLE CHRIS MAYES RESSANDRA Nov 30, 2024 14:57 CALI QUEVEDO MD Dec 02, 2024 21:49
[2024-11-30 16:38] VITALS: BP 148/106; PULSE 98; RESP 20; TEMP 97.2; O2SAT 95
--- NOTE | 2024-11-30 20:54 | DVHDSRES ---
Discharge Summary Date of Admission Resident Creating Document: CHRIS MAYES RESDIENT Nov 28, 2024 at 02:08 Date of Discharge: Nov 30, 2024 Admitting Diagnosis Pulmonary Emboli Labs/Diagnostic Data: Laboratory Results Test 11/30/24 12:01 11/30/24 05:47 11/28/24 09:55 11/28/24 05:04 Prothrombin Time 13.0 sec (9.3-11.8) Prothrombin Time INR 1.25 (0.9-1.15) Activated Partial Thromboplast Time 47.8 SEC (24.5-34.5) White Blood Count 13.0 10^3/uL (4.4-10.8) Red Blood Count 5.28 10^6/uL (4.5-5.90) Hemoglobin 15.1 g/dL (13.5-17.5) Hematocrit 46.2 % (41.0-53.0) Mean Corpuscular Volume 87.4 fL (80.0-100.0) Mean Corpuscular Hemoglobin 28.6 pg (28.0-32.0) Mean Corpuscular Hemoglobin Concent 32.7 g/dL (32.0-36.0) Red Cell Distribution Width 14.8 % (11.8-14.3) Platelet Count 253 10^3/uL (140-450) Mean Platelet Volume 8.9 fL (6.9-10.8) Neutrophils (%) (Auto) 75.7 % (37.0-80.0) Lymphocytes (%) (Auto) 10.7 % (10.0-50.0) Monocytes (%) (Auto) 13.2 % (0.0-12.0) Eosinophils (%) (Auto) 0.3 % (0.0-7.0) Basophils (%) (Auto) 0.1 % (0.0-2.0) Neutrophils # (Auto) 9.9 10 ^3/uL (1.6-8.6) Lymphocytes # (Auto) 1.4 10 ^3/uL (0.4-5.4) Monocytes # (Auto) 1.7 10 ^3/uL (0-1.3) Eosinophils # (Auto) 0 10 ^3/uL (0-0.8) Basophils # (Auto) 0 10 ^3/uL (0-0.2) Nucleated Red Blood Cells 0.0 % Sodium Level 139 mmol/L (136-145) Potassium Level 4.8 mmol/L (3.5-5.1) Chloride Level 104 mmol/L (98-107) Carbon Dioxide Level 23 mmol/L (20-31) Anion Gap 12 (5-15) Blood Urea Nitrogen 23 mg/dL (9-23) Creatinine 1.72 mg/dL (0.700-1.30) Glomerular Filtration Rate Calc 44 mL/min (>90) BUN/Creatinine Ratio 13.4 (10.0-20.0) Serum Glucose 115 mg/dL (74-106) Calcium Level 10.0 mg/dL (8.7-10.4) Total Bilirubin 1.9 mg/dL (0.2-1.0) Aspartate Amino Transferase (AST) 86 U/L (13-40) Alanine Aminotransferase (ALT) 95 U/L (7-40) Alkaline Phosphatase 125 U/L (46-116) Total Protein 6.9 g/dL (5.7-8.2) Albumin 4.2 g/dL (3.2-4.8) Urine Color Yellow (Yellow) Urine Clarity Clear (Clear) Urine pH 5.5 (5.0-9.0) Urine Specific [place] 1.019 (1.001-1.035) Urine Protein Trace (Negative) Urine Ketones Trace (Negative) Urine Blood Negative /uL (Negative) Urine Nitrite Negative (Negative) Urine Bilirubin Negative (Negative) Urine Urobilinogen 4 mg/dL (Negative) Urine Leukocyte Esterase Negative /uL (Negative) Urine RBC 1 /hpf (0 - 3) Urine Microscopic WBC 3 /HPF (0-3) Urine Squamous Epithelial Cells Few /hpf (<5) Urine Bacteria None seen /hpf (None Seen) Urine Mucus Few (None Seen) Urine Glucose 2+ mg/dL (Normal) Urine Opiates Screen Pos (NEGATIVE) Urine Fentanyl Screen Neg (NEGATIVE) Urine Barbiturates Screen Neg (NEGATIVE) Urine Phencyclidine Screen Neg (NEGATIVE) Urine Amphetamines Screen Pos (NEGATIVE) Urine Benzodiazepines Screen Neg (NEGATIVE) Urine Cocaine Screen Neg (NEGATIVE) Urine Cannabinoids Screen Neg (NEGATIVE) Hemoglobin A1c 6.4 % A1C (<5.7) Magnesium Level 2.1 mg/dL (1.6-2.6) Thyroid Stimulating Hormone (TSH) 0.88 uIU/mL (0.55-4.78) Test 11/28/24 02:20 11/28/24 00:15 11/27/24 23:24 Troponin I High Sensitivity 205 ng/L (</=54) Triglycerides Level 112 mg/dL (< 150) Cholesterol Level 161 mg/dL (< 200) LDL Cholesterol 105 mg/dL (< 100) HDL Cholesterol 36 mg/dL (40-59) D-Dimer, Quantitative 2.03 mg/L FEU (0.0-0.49) B-Type Natriuretic Peptide 663.03 pg/mL (0-100) Other Laboratory Tests 11/30/24 05:47 Brief Hx & Hospital Course: This is a 64-year-old male with no past medical history of relevance, who takes no medications at home. Patient presented to the ED with chief complaint of acute chest pain associated with shortness of breaths. The patient states that the symptoms started 3-4 days ago consistent initially with shortness of breaths that progressed developing chest pain. The patient described the pain as intermittent sharp pain that comes and goes and rates the pain as 8/10 on the pain scale. On admission, the patient was requiring 2 L of oxygen through nasal cannula to saturating 91%. Patient denied lower extremity pain, swelling, fever/chills, abdominal tenderness or any other symptoms. Initial labs CBC was grossly unremarkable, CMP showed a creatinine of 2.17 and BUN of 18. Troponins came back elevated, D-dimer came back significantly elevated and BNP was 663. Initial chest x-ray was grossly clear with no evidence of consolidations. We will order V/Q scan since the patient has TAHIRA on CKD and she did not get IV contrast at this point. Patient was started on heparin drip and we will be admitted for further assessment and management. Hospital course: The patient was admitted at the line of acute hypoxic respiratory failure due to systolic heart failure exacerbation, possibly due to methamphetamine use disorder. Due to raised D-dimer, CT angio was performed which showed bilateral enlarged pulmonary emboli, upon compared to previous CT angio, findings were same to previous CT angio, cardiology and radiology were consulted, recommended medical management with anticoagulant. Patient was started on heparin drip, IV Lasix 20 mg daily, spironolactone 25 mg daily, metoprolol 12.5 mg twice and given oxygen through nasal cannula. Echocardiogram was performed and showed abnormal interventricular septal motion with LVEF 40%, RV and RA were enlarged. Patient gradually improved, and he was weaned off from oxygen, heparin drip was substituted with apixaban 5 mg b.i.d.. Patient was consulted regarding methamphetamine cessation and medication adherence. On 11/30/2024, the patient left AMA. Patient encouraged to stay for further treatment/stabilization. Patient advised of the risks and benefits of leaving AMA. Patient verbalized understanding. Patient encouraged to return to the ER if symptoms do not improve or worsen. Condition at Discharge: Undetermined Final Diagnosis/Problems List Acute hypoxic respiratory failure, likely due to bilateral pulmonary emboli /systolic heart failure exacerbation Chronic Bilateral massive Pulmonary emboli Acute on chronic HFrEF, NYHA class III NSTEMI, type 2, likely due to above Hyperlipidemia, newly diagnosed TAHIRA, on likely VMN Prediabetes Methamphetamine use disorder Tobacco use Obesity DVT of right femoral vein Medical noncompliance Hyperkalemia Pericardial effusion Transaminitis Sirs positive Discharge Disposition: AMA Discharge Statement: "Patient was advised to return to the ER or call 911 if any headaches, dizziness, shortness of breath, chest pain, abdominal pain, bleeding, fevers, or worsening of medical condition. Patient was counseled about treatment plan, medications, possible side effects, patientverbalized understanding. All questions were answered to the best of my ability. This discharge took greater then 30 minutes in planning, reviewing documentation, counseling the patient, and discussing with other team members." ASSESSMENT ASSESSMENT Assessment Date of Service: Nov 30, 2024 Billing Provider: CALI WEBB MD Common Visit Codes: 31150-HBM/OBS DISCH DAY >30min CHRIS MAYES RESDIENT Nov 30, 2024 20:54 CALI WEBB MD Dec 02, 2024 21:48
[2024-11-30] MEDS ORDERED: APIXABAN 5 MG TAB PO SCH (22:00)
== END 2024-11-30 17:15 | disposition left against medical advice (07) | DRG 134 ==
LOC: ER 23:13 → OVERFLOW 11-28 02:08 → TELE-WESTW 11-28 13:57
PROVIDERS: ADMIT Hospitalist; ATTEND Hospitalist
DX: I26.99 Other pulmonary embolism without acute cor pulmonale (principal); J96.01 Acute respiratory failure with hypoxia; N17.0 Acute kidney failure with tubular necrosis; I50.23 Acute on chronic systolic (congestive) heart failure; I31.39 Other pericardial effusion (noninflammatory); R65.10 Systemic inflammatory response syndrome (SIRS) of non-infectious origin without acute organ dysfunction; I13.0 Hypertensive heart and chronic kidney disease with heart failure and stage 1 through stage 4 chronic kidney disease, or unspecified chronic kidney disease; I27.24 Chronic thromboembolic pulmonary hypertension; I21.A1 Myocardial infarction type 2; Z53.29 Procedure and treatment not carried out because of patient's decision for other reasons; E87.5 Hyperkalemia; E66.9 Obesity, unspecified; F15.90 Other stimulant use, unspecified, uncomplicated; N18.31 Chronic kidney disease, stage 3a; I82.411 Acute embolism and thrombosis of right femoral vein; E78.5 Hyperlipidemia, unspecified; I45.10 Unspecified right bundle-branch block; R73.03 Prediabetes; R74.01 Elevation of levels of liver transaminase levels; Z91.148 Patient's other noncompliance with medication regimen for other reason; Z79.01 Long term (current) use of anticoagulants; Z79.899 Other long term (current) drug therapy; Z82.5 Family history of asthma and other chronic lower respiratory diseases; Z83.3 Family history of diabetes mellitus; Z68.30 Body mass index [BMI] 30.0-30.9, adult
CPT/HCPCS: 36415; 71045; 71275; 80048; 80053; 80061; 80307; 81001; 83036; 83735; 83880; 84132; 84443; 84484; 85025; 85379; 85610; 85730; 93005; 93306; 93970; 94640; 99291; G0378; J1815; J2405

== ENCOUNTER 2024-12-19 22:27 | Inpatient (IN) | payer MEDICAID ==
[~2024-12-19] VITALS: Ht 185.4 cm; Wt 100.2 kg
--- NOTE | 2024-12-19 23:44 | ED.PDOC ---
SOB-HPI HPI Comments 64-year-old male who came to ER due to shortness of breath. History of hy pertension and COPD. States for the past 2 days he has been having cough and shortness of breath progressively worsening. Was saturating 94% on room air upon arrival. Denies any fever, nausea, vomiting or acute chest pains. Patient was tachycardic at arrival. Chief Complaint: Shortness of Breath Time Seen by MD: 23:43 Primary Care Provider: Dr. Singleton Reviewed notes: Nurses Notes Information Source: Patient Mode of Arrival: Ambulatory Severity: Moderate Timing: Days Duration: Intermittent Context: At Rest, With Light Exertion PE Risk Factors: None History of: COPD Prehospital treatment: None Modifying Factors: Nothing Associated Signs and Symptoms: Wheeze, Cough Quality: Tightness Radiation: No Radiation If cough with SOB: Non-Productive Past Medical History PAST MEDICAL HISTORY: CHF, COPD, HTN Surgical History: Denies all surgeries Family History Family History: Reviewed,noncontributory to illness Social History Smoker: Cigarettes Alcohol: Denies ETOH Use Drugs: Denies Drug Use Lives In: Home Constitutional: denies: chills, diaphoresis, fatigue, fever, malaise, sweats, weakness, others EENTM: denies: blurred vision, double vision, ear bleeding, ear discharge, ear drainage, ear pain, ear ringing, eye pain, eye redness, hearing loss, mouth pain, mouth swelling, nasal discharge, nose bleeding, nose congestion, nose pain, photophobia, tearing, throat pain, throat swelling, voice changes, others Respiratory: reports: cough, SOB at rest, shortness of breath, wheezing; denies: hemoptysis, orthopnea, SOB with excertion, stridor, others Cardiovascular: denies: chest pain, dizzy spells, diaphoresis, Dyspnea on exertion, edema, irregular heart beat, left arm pain, lightheadedness, palpitations, PND, syncope, others Gastrointestinal: denies: abdomen distended, abdominal pain, blood streaked bowels, constipated, diarrhea, dysphagia, difficulty swallowing, hematemesis, melena, nausea, poor appetite, poor fluid intake, rectal bleeding, rectal pain, vomiting, others Genitourinary: denies: burning, dysuria, flank pain, frequency, hematuria, incontinence, penile discharge, penile sore, pain, testicle pain, testicle swelling, urgency, others Neurological: denies: dizziness, fainting, headache, left sided numbness, left sided weakness, numbness, paresthesia, pre-existing deficit, right sided numbness, right sided weakness, seizure, speech problems, tingling, tremors, weakness, others Musculoskeletal: denies: back pain, gout, joint pain, joint swelling, muscle pain, muscle stiffness, neck pain, others Integumetry: denies: bruises, change in color, change in hair/nails, dryness, laceration, lesions, lumps, rash, wounds, others Allergic/Immunocompromised: denies: Difficulty Healing, Frequent Infections, Hives, Itching, others Hematologic/Lymphatic: denies: anemia, blood clots, easy bleeding, easy bruising, swollen glands, others Endocrine: denies: excessive hunger, excessive sweating, excessive thirst, excessive urination, flushing, intolerance to cold, intolerance to heat, unexplained weight gain, unexplained weight loss, others Psychiatric: denies: anxiety, bipolar disorder, depression, hopeless, panic di sorder, schizophrenia, sleepless, suicidal, others Physical Exam General Appearance: Moderate Distress (Patient appears to be in moderate distress at time of evaluation. Patient appears to be in poor overall health.), Normal HEENT: Normal ENT Inspection, Pharynx Normal, TMs Normal Neck: Full Range of Motion, Non-Tender, Normal, Normal Inspection Respiratory: Other (Diminished left-sided breath sounds on auscultation. Patchy wheezing throughout.) Cardiovascular: No Edema, No JVD, No Murmur, No Gallop, Normal Peripheral Pulses, Regular Rate/Rhythm Breast Exam: Deferred Gastrointestinal: No Organomegaly, Non Tender, No Pulsatile Mass, Normal Bowel Sounds, Soft Genitalia: Deferred Pelvic: Deferred Rectal: Deferred Extremities: No calf tenderness, Normal capillary refill, Normal inspection, Normal range of motion, Non-tender, No pedal edema Neurologic: Alert, No Motor Deficits, Normal Affect, Normal Mood, No Sensory Deficits Cerebellar Function: NOT DONE Reflexes: NOT DONE Skin: Dry, Normal Color, Warm Lymphatic: No Adenopathy Was a procedure done? Was a procedure done?: No Differential Dx Differential Diagnosis: Asthma, Bronchitis, CHF, COPD, Pneumonia, Respiratory Distress, Other (Acute MA, acute coronary syndrome) X-Ray, Labs, Meds, VS Vital Signs Date Time Temp Pulse Resp B/P (MAP) Pulse Ox O2 Delivery O2 Flow Rate FiO2 12/20/24 00:15 105 21 98 Room Air 12/20/24 00:15 105 21 127/88 (101) 98 12/20/24 00:15 96 Room Air* 0 21 21 12/19/24 23:44 109 12/19/24 23:35 99.9 115 18 112/87 (95) 95 99.9 Lab Test 12/20/24 01:20 12/20/24 00:29 Range/Units Troponin I High Sensitivity 149 *H 142 *H </=54 ng/L White Blood Count 9.6 4.4-10.8 10^3/uL Red Blood Count 5.64 4.5-5.90 10^6/uL Hemoglobin 16.1 13.5-17.5 g/dL Hematocrit 48.2 41.0-53.0 % Mean Corpuscular Volume 85.4 80.0-100.0 fL Mean Corpuscular Hemoglobin 28.6 28.0-32.0 pg Mean Corpuscular Hemoglobin Concent 33.5 32.0-36.0 g/dL Red Cell Distribution Width 14.5 H 11.8-14.3 % Platelet Count 330 140-450 10^3/uL Mean Platelet Volume 8.1 6.9-10.8 fL Neutrophils (%) (Auto) 60.3 37.0-80.0 % Lymphocytes (%) (Auto) 14.6 10.0-50.0 % Monocytes (%) (Auto) 14.1 H 0.0-12.0 % Eosinophils (%) (Auto) 10.2 H 0.0-7.0 % Basophils (%) (Auto) 0.8 0.0-2.0 % Neutrophils # (Auto) 5.8 1.6-8.6 10 ^3/uL Lymphocytes # (Auto) 1.4 0.4-5.4 10 ^3/uL Monocytes # (Auto) 1.4 H 0-1.3 10 ^3/uL Eosinophils # (Auto) 1.0 H 0-0.8 10 ^3/uL Basophils # (Auto) 0.1 0-0.2 10 ^3/uL Nucleated Red Blood Cells 0.1 % Sodium Level 134 L 136-145 mmol/L Potassium Level 4.5 3.5-5.1 mmol/L Chloride Level 100 98-107 mmol/L Carbon Dioxide Level 25 20-31 mmol/L Anion Gap 9 5-15 Blood Urea Nitrogen 25 H 9-23 mg/dL Creatinine 2.36 H 0.700-1.30 mg/dL Glomerular Filtration Rate Calc 30 >90 mL/min BUN/Creatinine Ratio 10.6 10.0-20.0 Serum Glucose 99 74-106 mg/dL Lactic Acid Level 1.6 0.4-2.0 mmol/L Calcium Level 9.0 8.7-10.4 mg/dL Total Bilirubin 0.6 0.2-1.0 mg/dL Aspartate Amino Transferase (AST) 34 <34 U/L Alanine Aminotransferase (ALT) 26 7-40 U/L Alkaline Phosphatase 70 46-116 U/L B-Type Natriuretic Peptide 236.58 0-100 pg/mL Total Protein 7.5 5.7-8.2 g/dL Albumin 4.3 3.2-4.8 g/dL Current Medications Medications (Trade) Dose Ordered Sig/Sarahi Route Start Time Stop Time Status Last Admin Albuterol (Ventolin Medneb) 5 mg ONCE ONCE NEB 12/19/24 23:45 12/19/24 23:46 DC 12/20/24 00:15 Ipratropium [place] (Atrovent Medneb) 0.5 mg ONCE ONCE NEB 12/19/24 23:45 12/19/24 23:46 DC 12/20/24 00:15 Dexamethasone Sodium Phosphate (Decadron Injection) 10 mg ONCE ONCE IM 12/19/24 23:45 12/19/24 23:46 DC 12/20/24 00:13 X-Ray, Labs, Meds, VS Comment All studies performed in the ED today were evaluated by me personally. Serum laboratories revealed an elevated troponin, what appears to be acute on chronic renal injury and a developing CHF exacerbation. Imaging studies revealed a probable pneumonia. EKG studies revealed a sinus tachycardia with a rate of 109. Right bundle-branch block was noted with a possible inferior infarct of an acute nature. SC interval 163 and QT interval of 372. EKG was evaluated by our on-call volunteer services coordinator. He stated the patient was not suffering from an acute MA. patient will be admitted for cardiac evaluation as well as management of his pneumonia and renal concerns. Time of Reevaluation: 02:28 Reevaluation 1ST: Improved Consultation: PCP, Cardiology Patient Education/Counseling: Diagnosis, Treatment Family Education/Counseling: Diagnosis, Treatment, No Family Present SEPSIS Sepsis Screen Recent Procedure: No On Antibiotic Therapy: No Respiratory Rate >20: No Heart Rate >90: Yes Temp<36 C (96.8 F) or >38.3 C: No SBP <90 or MAP <65 mmHG: No New Acute Mental Status Change: No Is the patient on CPAP, BIPAP,: No IV fluid challenge completed?: No Physician Orders Chest Portable (12/19/24 23:40) Electrocardigram (12/19/24 23:47) Troponin-I Hs (12/20/24 02:47) Azithromycin 500mg/ 250ml (Zithromax 50 (12/20/24 02:30) Vital Signs Date Time Temp Pulse Resp B/P (MAP) Pulse Ox O2 Delivery O2 Flow Rate FiO2 12/20/24 00:15 105 21 98 Room Air 12/20/24 00:15 105 21 127/88 (101) 98 12/20/24 00:15 96 Room Air* 0 21 21 12/19/24 23:44 109 12/19/24 23:35 99.9 115 18 112/87 (95) 95 99.9 Laboratory Tests Test 12/20/24 00:29 Lactic Acid Level 1.6 mmol/L (0.4-2.0) White Blood Count 9.6 10^3/uL (4.4-10.8) Medications Medications Dose Ordered Sig/Sarahi Route Start Time Stop Time Status Last Admin Dose Admin Albuterol 5 mg ONCE ONCE NEB 12/19/24 23:45 12/19/24 23:46 DC 12/20/24 00:15 Dexamethasone Sodium Phosphate 10 mg ONCE ONCE IM 12/19/24 23:45 12/19/24 23:46 DC 12/20/24 00:13 Ipratropium [place] 0.5 mg ONCE ONCE NEB 12/19/24 23:45 12/19/24 23:46 DC 12/20/24 00:15 Departure 1 Departure Time of Disposition: :29 Impression: Primary Impression: Acute exacerbation of chronic obstructive pulmonary disease (COPD) Additional Impressions: Pneumonia Xinpr-mv-bwobien kidney injury CHF exacerbation Disposition: ADMITTED INPATIENT Condition: Fair Discharged With: Self Critical Care Note Critical Care Time?: No Critical care comment: Shortness of breath Stability Stability form required: No Heart Score Heart Score: Heart Score Response (Comments) Value History Slightly Suspicious 0 EKG Repolarization Disturb 1 Age 45-64 1 Risk Factors 1 or 2 risk factors 1 Troponin >3 x's Normal limit 2 Total 5 I personally scribed for GABBY BRAR PAC ([email or web address]) on 12/19/24 at 23:44. Electronically submitted by Neil Tovar ([facility]). GABBY BRAR PAC Dec 19, 2024 23:44
[2024-12-20] VITALS (9 sets, daily range): BP systolic 104–126; BP diastolic 63–90; PULSE 78–96; RESP 18–20; TEMP 97.6–98.3; O2SAT 90–97
[2024-12-20] MEDS: DexAMETHasone SOD PHOS 10MG/1ML VIAL INJ IM ONE (00:13)
[2024-12-20] MEDS: IPRATROPIUM BROM 0.5 MG/2.5ML INH SOL NEB ONE (00:15)
[2024-12-20] MEDS: ALBUTEROL SULF 2.5 MG/0.5ML(0.5%) NEB SOLN NEB ONE (00:15)
--- NOTE | 2024-12-20 00:47 | DVH ---
EXAM: XY CHEST PORTABLE CLINICAL HISTORY: Shortness a breath TECHNIQUE: Single AP view of the chest WID: COMPARISON: XY CHEST PORTABLE on DOS: 11/28/24 FINDINGS: Lines and tubes: None Chest: The heart size and pulmonary vasculature is within normal limits. Linear perihilar opacities. No pleural effusion or pneumothorax. The osseous structures are grossly intact. Multilevel thoracic spondylosis. IMPRESSION: Linear perihilar opacities which could reflect subsegmental atelectasis or pneumonia.
[2024-12-20 00:55] LABS: Basophils # (auto) 0.1 10 ^3/uL (0-0.2); Basophils % (auto) 0.8 % (0.0-2.0); Eosinophils % (auto) 10.2 % (0.0-7.0); Hematocrit 48.2 % (41.0-53.0); Hemoglobin 16.1 g/dL (13.5-17.5); Lymphocytes # (auto) 1.4 10 ^3/uL (0.4-5.4); Lymphocytes % (auto) 14.6 % (10.0-50.0); Mean Corpuscular Hemoglobin 28.6 pg (28.0-32.0); Mean Corpuscular Hgb Conc. 33.5 g/dL (32.0-36.0); Mean Corpuscular Volume 85.4 fL (80.0-100.0); Monocytes # (auto) 1.4 10 ^3/uL (0-1.3); Monocytes % (auto) 14.1 % (0.0-12.0); Neutrophils # (auto) 5.8 10 ^3/uL (1.6-8.6); Neutrophils % (auto) 60.3 % (37.0-80.0); Nucleated Red Blood Cells % 0.1 %; Platelet Count (auto) 330 10^3/uL (140-450); Red Blood Cells 5.64 10^6/uL (4.5-5.90); Red Cell Distribution Width 14.5 % (11.8-14.3); White Blood Cell 9.6 10^3/uL (4.4-10.8)
[2024-12-20 01:11] LABS: Alanine Aminotransferase 26 U/L (7-40); Albumin 4.3 g/dL (3.2-4.8); Alkaline Phosphatase 70 U/L (46-116); Anion Gap 9 (5-15); BUN/Creatinine Ratio 10.6 (10.0-20.0); Bilirubin, Total 0.6 mg/dL (0.2-1.0); Carbon Dioxide 25 mmol/L (20-31); Chloride 100 mmol/L (98-107); Glucose 99 mg/dL (74-106); Potassium 4.5 mmol/L (3.5-5.1); Total Protein 7.5 g/dL (5.7-8.2)
[2024-12-20 01:25] LABS: Aspartate Aminotransferase 34 U/L (<34); Blood Urea Nitrogen 25 mg/dL (9-23); Sodium 134 mmol/L (136-145)
[2024-12-20] MEDS: AZITHROMYCIN 500MG/ 250ML 250 ML IV ONE (02:59)
[2024-12-20] MEDS: ASPirin 325 MG TAB PO ONE (04:23)
[2024-12-20] MEDS ORDERED: ACETAMINOPHEN 325 MG TAB PO PRN (04:30)
[2024-12-20] MEDS ORDERED: DOCUSATE SOD 100 MG CAP PO PRN (04:30)
[2024-12-20] MEDS ORDERED: ONDANSETRON HCL 4 MG/2 ML VIAL IV PRN (04:30)
[2024-12-20] MEDS ORDERED: HYDROcodone-ACET 5/325MG TAB PO PRN (04:30)
--- NOTE | 2024-12-20 05:23 | DVHHP2 ---
History of Present Illness Reason for Visit: COPD with acute exacerbation History of Present Illness The patient is a 64-year-old male with past medical history of CHF, hypertension, and COPD who presented to [facility] ED with complaint of shortness of breaths. Patient reports for the past 2 days he has been experi encing cough, increased work of breathing, desaturating room air, progressively worsening that prompted this visit. Patient was seen and evaluated in the ED, laboratory data shows WBC 9.6, platelets 330, sodium 134, potassium 4.5, BUN 25, creatinine 2.36, glucose 99, calcium 9.0, BNP 236.58, troponin 142, blood pressure 129/80, heart rate 106, temperature 99.0 F, O2 saturation 96% on oxygen. Chest x-ray revealing Marina perihilar opacity which could reflect subsegmental atelectasis or pneumonia. Patient was started on IV antibiotic regimen azithromycin, please see medication orders section in the computer. On my assessment, patient denied chest pain, no headache, no dizziness, no diaphoresis, currently on oxygen, no nausea, vomiting, no fever, no chills. Patient was admitted for further evaluation and medical management. Past Medical History CHF, COPD, HTN Past Surgical History Denies all surgeries Family History Reviewed, noncontributory to the management of this case. Past Social History The patient lives at home, smokes cigarettes, denies alcohol or illicit drugs abuse. Review of Systems Constitutional: Yes: Weakness; No: Fever, Chills, Sweats, Malaise, Other Eyes: No: Pain, Vision change, Conjunctivae inflammation, Eyelid inflammation, Other, Redness ENT: No: Ear pain, Ear discharge, Nose pain, Nose discharge, Nose congestion, Mouth pain, Mouth swelling, Throat pain, Throat swelling, Other Respiratory: Cough, Shortness of breath, Wheezing, Other (SOB at rest); No: Dry, SOB with excertion, Hemoptysis, Pleuritic Pain, Sputum, Wheezing Cardiovascular: No: Chest Pain, Palpitations, Orthopnea, Paroxysmal Noc. Dyspnea, Edema, Lt Headedness, Other Gastrointestinal: No: Nausea, Vomiting, Abdominal Pain, Diarrhea, Constipation, Melena, Hematochezia, Other Genitourinary: No Dysuria, No Frequency, No Incontinence, No Hematuria, No Retention, No Other Musculoskeletal: No: other, neck pain, shoulder pain, arm pain, back pain, hand pain, leg pain, foot pain Skin: No: Rash, Lesions, Jaundice, Bruising, Other Neurological: No: Weakness, Numbness, Incoordination, Change in speech, Confusion, Seizures, Other Allergies: Coded Allergies: NO KNOWN ALLERGIES (Unverified , 03/01/23) Medications Current Medications Medications Dose Ordered Sig/Sarahi Route Start Time Stop Time Status Last Admin Dose Admin Albuterol 2.5 mg Q4HPRN PRN NEB 12/20/24 04:30 Ipratropium [place] 0.5 mg Q4HPRN PRN NEB 12/20/24 04:30 Azithromycin 250 ml @ 125 mls/hr DAILY@0300 IV 12/21/24 03:00 Methylprednisolone Sodium Succinate 40 mg Q8HR IV 12/20/24 06:00 Famotidine 20 mg Q12HR IV 12/20/24 10:00 Aspirin 81 mg DAILY PO 12/20/24 10:00 Furosemide 20 mg DAILY IV 12/20/24 10:00 Sodium Chloride 10 ml Q8HR IV 12/20/24 06:00 Acetaminophen/ Hydrocodone Bitart 1 tab Q4HP PRN PO 12/20/24 04:30 Ondansetron HCl 4 mg Q4HP PRN IV 12/20/24 04:30 Docusate Sodium 100 mg BIDPRN PRN PO 12/20/24 04:30 Acetaminophen 650 mg Q6HP PRN PO 12/20/24 04:30 Carvedilol 3.125 mg Q12HR PO 12/20/24 10:00 Exam Vital Signs Vital Signs Date Time Temp Pulse Resp B/P (MAP) Pulse Ox O2 Delivery O2 Flow Rate FiO2 12/20/24 04:51 98.0 96 18 126/90 95 21 98.0 12/20/24 00:15 Room Air 12/20/24 00:15 0 General Appearance: Alert, Oriented X3, Cooperative, No acute distress HEENT: Atraumatic, PERRLA, EOMI, Mucous membr. moist/pink Respiratory: Normal air movement, Other (Diminished breath sounds) Cardiovascular: Regular rate, Normal S1, Normal S2, No murmurs Abdominal: Normal bowel sounds, Soft, No tenderness, No hepatospenomegaly, No masses Extremities: No clubbing, No cyanosis, No edema, Normal pulses, No tenderness/swelling Skin: No rashes, No breakdown, No significant lesion Neuro: Normal speech, Normal tone, Sensation intact, Cranial nerves 3-12 NL, Reflexes 2+, Other (Generalized weakness) Psych/Mental Status: Mental status NL, Mood NL Labs/Xrays Labs Test 12/20/24 05:07 12/20/24 02:58 12/20/24 00:29 Range/Units Troponin I High Sensitivity 149 *H </=54 ng/L Eosinophils (%) (Auto) 10.2 H 0.0-7.0 % Eosinophils # (Auto) 1.0 H 0-0.8 10 ^3/uL Basophils # (Auto) 0.1 0-0.2 10 ^3/uL Nucleated Red Blood Cells 0.1 % Lactic Acid Level 1.6 0.4-2.0 mmol/L B-Type Natriuretic Peptide 236.58 0-100 pg/mL PATIENT: MARYAM BINGHAM ACCT: [id number] UNIT: [id number] : 1960 LOC: ER ROOM / BED: / AGE / SEX: 64 / M ADM STATUS: REG ER SERVICE [id number] ORDERING PHYSICIAN: GABBY BRAR PAC PROCEDURE(s): CXRP - CHEST PORTABLE REASON: Shortness a breath ORDER NUMBER(s): [id number], ACCESSION NUMBER(s): [id number] EXAM: XY CHEST PORTABLE CLINICAL HISTORY: Shortness a breath TECHNIQUE: Single AP view of the chest WID: COMPARISON: XY CHEST PORTABLE on DOS: 11/28/24 FINDINGS: Lines and tubes: None Chest: The heart size and pulmonary vasculature is within normal limits. Linear perihilar opacities. No pleural effusion or pneumothorax. The osseous structures are grossly intact. Multilevel thoracic spondylosis. IMPRESSION: Linear perihilar opacities which could reflect subsegmental atelectasis or pneumonia. Assessment/Plan Assessment/Plan COPD with acute exacerbation Pneumonia, unspecified organisms Yhsnz-dn-yvmcxve kidney injury Elevated troponin Generalized weakness Acute exacerbation of congestive heart failure Plan 1. Admit to telemetry unit 2. Breathing treatment 3. Pain control management 4. IV antibiotic management 5. Management of fluids and electrolytes 6. Consultation for hospitalist 7. Diagnostic test chest x-ray 8. DVT prophylaxis-on aspirin 9. Repeat labs CBC, CMP in a.m. 10. Home medication reviewed and reconciled 11. Continue with current medical management 12. Treatment plan discussed with patient and RN. Patient verbalized understanding. Plan discussed with: Patient, Other (RN) My Orders Orders - LETICIA MNCEAL DNP Procedure Category Date Status Time Complete Blood Count LAB 12/20/24 In Process 04:23 Comprehensive LAB 12/20/24 In Process Metabolic Panel 04:23 Albuterol Medneb PHA 12/20/24 In Process (Ventolin Medneb) 04:30 Ipratropium Medneb PHA 12/20/24 In Process (Atrovent Medneb) 04:30 Methylprednisolone PHA 12/20/24 In Process Sod Succ (Solu Medrol 06:00 Famotidine Injection PHA 12/20/24 In Process (Pepcid Injection) 10:00 Aspirin Tablet PHA 12/20/24 In Process 10:00 Furosemide Injection PHA 12/20/24 In Process (Lasix Injection) 10:00 Allergies BRENDA 12/20/24 In Process 04:23 Code Status CODE 12/20/24 Transmitted 04:23 Sodium Chloride Lock PHA 12/20/24 In Process (Saline Lock Ns) 06:00 Oxygen Per Hour RT 12/20/24 Transmitted 04:23 Hydrocodone-Acet PHA 12/20/24 In Process 5/325mg Tab ([place] 04:30 Ondansetron Hcl PHA 12/20/24 In Process (Zofran) 04:30 Docusate Sodium PHA 12/20/24 In Process Capsule (Colace 04:30 Complete Blood Count LAB 12/21/24 Verified 04:00 Comprehensive LAB 12/21/24 Verified Metabolic Panel 04:00 Cardiac DIET 12/20/24 Transmitted Diet-2gna,Lofat,Lochol Breakfast Condition: Serious BRENDA 12/20/24 In Process 04:23 Acetaminophen Tablet PHA 12/20/24 In Process (Tylenol Tablet) 04:30 Bedrest With Bathroom BRENDA 12/20/24 In Process Privileg 04:23 Sequential BRENDA 12/20/24 In Process Compression Device Carvedilol Tablet PHA 12/20/24 In Process (Coreg Tablet) 10:00 Azithromycin 500mg/ PHA 12/21/24 In Process 250ml (Zithromax 50 03:00 Admit ADMIT 12/20/24 Verified 05:21 Nitroglycerin PHA 12/20/24 Verified Sublingual (Ntrostat 05:30 Morphine Sulfate PHA 12/20/24 Verified Injection 05:30 Stat Ekg For Chest [facility] 12/20/24 Verified Pain 05:21 Notify Md Of Changes [facility] 12/20/24 Verified From Base 05:21 Aluminum Pourer For [facility] 12/20/24 Verified 24 Hours 05:21 Emergency Dysrhythmia [facility] 12/20/24 Verified Protocol 05:21 Rhythm Strips Once [facility] 12/20/24 Verified Every Shift 05:21 Oxygen By Nasal RT 12/20/24 Verified Cannula 05:21 Problem List: (1) COPD with acute exacerbation (2) Pneumonia, unspecified organism (3) Gsihp-mp-ajpkqhn kidney injury (4) Elevated troponin (5) Generalized weakness (6) Acute exacerbation of congestive heart failure Date of Service: Dec 20, 2024 Billing Provider: LETICIA MCNEAL DNP Common Visit Codes: 46468-[id number] INP/OBS CARE (HIGH) LETICIA MCNEAL DNP Dec 20, 2024 05:22
[2024-12-20] MEDS ORDERED: NITROGLYCERIN 0.4 MG SL TAB SL PRN (05:30)
[2024-12-20] MEDS ORDERED: MORPHINE SULFATE INJ 2 MG/ml SYRG IV PRN (05:30)
[2024-12-20 05:34] LABS: Basophils # (auto) 0 10 ^3/uL (0-0.2); Basophils % (auto) 0.5 % (0.0-2.0); Eosinophils # (auto) 0.2 10 ^3/uL (0-0.8); Eosinophils % (auto) 2.6 % (0.0-7.0); Hematocrit 50.8 % (41.0-53.0); Hemoglobin 16.7 g/dL (13.5-17.5); Mean Corpuscular Hemoglobin 28.2 pg (28.0-32.0); Mean Corpuscular Hgb Conc. 32.9 g/dL (32.0-36.0); Mean Corpuscular Volume 85.9 fL (80.0-100.0); Monocytes # (auto) 0.5 10 ^3/uL (0-1.3); Monocytes % (auto) 5.8 % (0.0-12.0); Neutrophils # (auto) 6.7 10 ^3/uL (1.6-8.6); Neutrophils % (auto) 79.1 % (37.0-80.0); Nucleated Red Blood Cells % 0.1 %; Platelet Count (auto) 293 10^3/uL (140-450); Red Blood Cells 5.91 10^6/uL (4.5-5.90); Red Cell Distribution Width 14.5 % (11.8-14.3); White Blood Cell 8.5 10^3/uL (4.4-10.8)
[2024-12-20 05:47] LABS: Alanine Aminotransferase 23 U/L (7-40); Albumin 4.6 g/dL (3.2-4.8); Alkaline Phosphatase 71 U/L (46-116); Anion Gap 11 (5-15); Aspartate Aminotransferase 25 U/L (<34); BUN/Creatinine Ratio 11.9 (10.0-20.0); Calcium 9.9 mg/dL (8.7-10.4); Carbon Dioxide 22 mmol/L (20-31); Chloride 99 mmol/L (98-107); Potassium 4.4 mmol/L (3.5-5.1); Total Protein 7.8 g/dL (5.7-8.2)
[2024-12-20 05:48] LABS: Bilirubin, Total 0.7 mg/dL (0.2-1.0)
[2024-12-20 05:53] LABS: Blood Urea Nitrogen 27 mg/dL (9-23); Glucose 175 mg/dL (74-106); Sodium 132 mmol/L (136-145)
[2024-12-20] MEDS: SODIUM CHLOR 0.9% PF (SALINE LOCK) 10ML VIAL/SYR IV SCH (06:01)
[2024-12-20] MEDS: methylPREDNISolone SOD SUCC 40 MG/ML VL IV SCH (06:12)
--- NOTE | 2024-12-20 09:10 | DVHPN2 ---
Subjective Feeling better with decreasing SOB; some dizziness; no pre-syncope Reviewed: Care Plan, H&P, Labs, Medications, Previous Orders, Radiology Changes from previous H/P or p: Changes Objective Vitals Vital Signs Date Time Temp Pulse Resp B/P (MAP) Pulse Ox O2 Delivery O2 Flow Rate FiO2 12/20/24 08:42 98.0 89 16 128/97 (107) 97 98.0 12/20/24 06:00 Room Air* 0 21 General Appearance: Alert, Oriented X3, Cooperative, No acute distress HEENT: Atraumatic Lungs: Other (Decreased air entry bilateral with scattered wheezing) Cardiovascular: Regular rate, Normal S1, Normal S2 Abdomen: Normal bowel sounds, Soft, No tenderness Extremities: No edema Neuro: Normal speech, Cranial nerves 3-12 NL Psych/Mental Status: Mental status NL, Mood NL Medications Current Medications Medications Dose Ordered Sig/Sarahi Route Start Time Stop Time Status Last Admin Dose Admin Albuterol 2.5 mg Q4HPRN PRN NEB 12/20/24 04:30 Ipratropium [place] 0.5 mg Q4HPRN PRN NEB 12/20/24 04:30 Azithromycin 250 ml @ 125 mls/hr DAILY@0300 IV 12/21/24 03:00 Methylprednisolone Sodium Succinate 40 mg Q8HR IV 12/20/24 06:00 12/20/24 06:12 40 MG Famotidine 20 mg Q12HR IV 12/20/24 10:00 Aspirin 81 mg DAILY PO 12/20/24 10:00 Furosemide 20 mg DAILY IV 12/20/24 10:00 Sodium Chloride 10 ml Q8HR IV 12/20/24 06:00 12/20/24 06:01 10 ML Acetaminophen/ Hydrocodone Bitart 1 tab Q4HP PRN PO 12/20/24 04:30 Ondansetron HCl 4 mg Q4HP PRN IV 12/20/24 04:30 Docusate Sodium 100 mg BIDPRN PRN PO 12/20/24 04:30 Acetaminophen 650 mg Q6HP PRN PO 12/20/24 04:30 Carvedilol 3.125 mg Q12HR PO 12/20/24 10:00 Nitroglycerin 0.4 mg Q5MINP PRN SL 12/20/24 05:30 Morphine Sulfate 2 mg Q30M PRN IV 12/20/24 05:30 Laboratory Results Laboratory Tests 12/20/24 05:07 Chemistry Test 12/20/24 00:29 12/20/24 05:07 Albumin 4.3 g/dL (3.2-4.8) 4.6 g/dL (3.2-4.8) Calcium Level 9.0 mg/dL (8.7-10.4) 9.9 mg/dL (8.7-10.4) Total Protein 7.5 g/dL (5.7-8.2) 7.8 g/dL (5.7-8.2) Cardiac Markers Test 12/20/24 00:29 B-Type Natriuretic Peptide 236.58 pg/mL (0-100) LFT Test 12/20/24 00:29 12/20/24 05:07 Alanine Aminotransferase (ALT) 26 U/L (7-40) 23 U/L (7-40) Alkaline Phosphatase 70 U/L (46-116) 71 U/L (46-116) Aspartate Amino Transferase (AST) 34 U/L (<34) 25 U/L (<34) Total Bilirubin 0.6 mg/dL (0.2-1.0) 0.7 mg/dL (0.2-1.0) Labs and/or images reviewed: Labs reviewed by me, Image(s) reviewed by me Assessment/Plan Assessment/Plan A 64-year-old male nonadherent patient; multiple comorbidities; who presented to the emergency department with dizziness, presyncope, and SOB. #Acute hypoxic respiratory failure due to COPD exacerbation; continue oxygen therapy as needed; continue monitoring #SOB due to COPD exacerbation; continue IV antibiotics; continue nebulizers; continue IV steroids; reviewed the available imaging studies; continue monitoring #COPD exacerbation due to Gram-positive versus Gram-negative pneumonia; continue IV antibiotics; continue monitoring #Dizziness/Presyncope; ordered head CT along with carotid duplex ultrasound; telemetry; continue monitoring #Acute on chronic systolic heart failure; continue IV diuresis; daily weight; telemetry; reviewed echocardiogram from earlier this month; continue monitoring #TAHIRA on CKD stage III; avoid nephrotoxic agents; monitor kidney function daily; continue monitoring #Metabolic syndrome in the setting of overweight with prediabetes and dyslipidemia; resumed home statin; counseled the patient importance of adopting healthy lifestyle with diet and exercise in order to lose weight #Bilateral pulmonary edema with right leg DVT; resumed home apixaban 5 mg twice a day; continue monitoring #NSTEMI due to acute on chronic systolic heart failure exacerbation; type 2 [place]; demand ischemia; on aspirin and statin; telemetry; continue monitoring #Polysubstance (Methamphetamine and Tobacco) use disorder; counseled for 22 minutes for methamphetamine use and tobacco use cessation; 14 minutes for tobacco use cessation; declined nicotine patch; continue monitoring Goals of care discussed with the patient for 20 minutes; full code Late Entry. This medical document was created using an electronic medical record system with computerized dictation system. Although this document has been carefully reviewed, there might still be some phonetic and typographical errors. These areas are purely typographical due to imperfections of the software programs, and do not reflect any compromise in the patient's medical care. Plan discussed with: Patient, Other (Nurse) Date of Service: Dec 20, 2024 Billing Provider: KM MOTLEY MD Common Visit Codes: [id number] INP/OBS CARE(HIGH) Secondary Visit Codes: [id number] CHNG SMOKING >10MIN (22 minutes for methamphetamine use and tobacco use cessation; 14 minutes for tobacco use cessation), [id number]-[id number] CARE PLAN 30 MINUTES (20 minutes) KM MOTLEY MD Dec 20, 2024 09:10
[2024-12-20] MEDS: IPRATROPIUM BROM 0.5 MG/2.5ML INH SOL NEB PRN (09:58)
[2024-12-20] MEDS: ALBUTEROL SULF 2.5 MG/0.5ML(0.5%) NEB SOLN NEB PRN (09:58)
[2024-12-20] MEDS: FAMOTIDINE (10MG/ML) 2ML VL IV SCH (10:11)
[2024-12-20] MEDS: CARVEDILOL 3.125 MG TAB PO SCH (10:11)
[2024-12-20] MEDS: ASPirin 81 mg TAB PO SCH (10:12)
[2024-12-20] MEDS: FUROSEMIDE 20 MG/2 ML VIAL IV SCH (10:12)
--- NOTE | 2024-12-20 11:54 | DVH ---
EXAM: CT HEAD WITHOUT CONTRAST INDICATION: Pre-syncope, and dizziness. Thank You! TECHNIQUE: CT of the head without intravenous contrast. Radiation Dose Information: CT Dose: CTDI volume is 57.07 mGy. Dose-length product is 1124.75 mGy*cm The dose indicators for CT are the volume Computed Tomography (CT) Dose Index (CTDIvol) and the Dose Length Product (DLP), and are measured in units of mGy and mGy-cm, respectively. These indicators are not patient dose, but values generated from the CT scanner acquisition factors. The report includes radiation exposure data for exposures received during this examination. COMPARISON: None FINDINGS: There is no evidence of acute intracranial hemorrhage, extra-axial collection, mass effect, midline s hift, herniation or hydrocephalus. The ventricles, sulci and cisterns are age appropriate. The eubanks-white differentiation is intact. Patchy periventricular and subcortical white matter hypoattenuation is nonspecific but may be related to small vessel ischemic disease. The visualized paranasal sinuses and mastoid air cells are clear. The surrounding soft tissues and osseous structures are unremarkable. IMPRESSION: No acute intracranial abnormality.
--- NOTE | 2024-12-20 13:09 | DVH ---
Carotid Duplex Date: 12/20/2024 11:55 AM Clinical History: Presyncope Comparison: US CAROTID DUPLX W COLOR DOP on DOS: 03/02/23 Technique: Duplex Doppler evaluation of the extracranial carotid and vertebral arteries including col or Doppler and spectral/pulsed waveform analysis was performed. Findings: RIGHT SIDE: The peak systolic velocities are 46 cm/s in the distal CCA and 72 cm/s in the proximal ICA.The ICA/CC A ratio is less than 2. The external carotid artery is patent with peak systolic velocity of 67 cm/s proximally. There is appropriate antegrade flow in the right vertebral artery. LEFT SIDE: The peak systolic velocities are 74 cm/s in the distal CCA and 66 cm/s in the proximal ICA.. The ICA/ CCA ratio is less than 1. The external carotid artery is patent with peak systolic velocity of 82 cm/s proximally. There is appropriate antegrade flow in the left vertebral artery. IMPRESSION: No hemodynamically significant stenosis noted in the right carotid system. No hemodynamically significant stenosis noted in the left carotid system. Reference: Radiology 2003; 229:340-346
[2024-12-20] MEDS: ATORVASTATIN 20 MG TAB PO SCH (22:04)
[2024-12-20] MEDS: APIXABAN 5 MG TAB PO SCH (22:04)
[2024-12-21] VITALS (11 sets, daily range): BP systolic 94–134; BP diastolic 57–95; PULSE 78–91; RESP 18–20; TEMP 97.4–98; O2SAT 93–97
[2024-12-21] MEDS: AZITHROMYCIN 500MG/ 250ML 250 ML IV SCH (04:25)
[2024-12-21 05:53] LABS: Basophils # (auto) 0 10 ^3/uL (0-0.2); Basophils % (auto) 0.2 % (0.0-2.0); Eosinophils # (auto) 0 10 ^3/uL (0-0.8); Eosinophils % (auto) 0.3 % (0.0-7.0); Hematocrit 46.6 % (41.0-53.0); Hemoglobin 15.7 g/dL (13.5-17.5); Lymphocytes # (auto) 0.7 10 ^3/uL (0.4-5.4); Lymphocytes % (auto) 4.8 % (10.0-50.0); Mean Corpuscular Hemoglobin 28.6 pg (28.0-32.0); Mean Corpuscular Hgb Conc. 33.8 g/dL (32.0-36.0); Mean Corpuscular Volume 84.5 fL (80.0-100.0); Monocytes # (auto) 0.7 10 ^3/uL (0-1.3); Monocytes % (auto) 4.8 % (0.0-12.0); Neutrophils # (auto) 13.6 10 ^3/uL (1.6-8.6); Neutrophils % (auto) 89.9 % (37.0-80.0); Platelet Count (auto) 291 10^3/uL (140-450); Red Blood Cells 5.51 10^6/uL (4.5-5.90); Red Cell Distribution Width 14.4 % (11.8-14.3); White Blood Cell 15.2 10^3/uL (4.4-10.8)
[2024-12-21 06:07] LABS: Alanine Aminotransferase 19 U/L (7-40); Albumin 4.1 g/dL (3.2-4.8); Alkaline Phosphatase 59 U/L (46-116); Anion Gap 10 (5-15); Aspartate Aminotransferase 18 U/L (<34); BUN/Creatinine Ratio 18.5 (10.0-20.0); Calcium 10.1 mg/dL (8.7-10.4); Carbon Dioxide 23 mmol/L (20-31); Chloride 105 mmol/L (98-107); Potassium 4.4 mmol/L (3.5-5.1); Sodium 138 mmol/L (136-145)
[2024-12-21 06:08] LABS: Bilirubin, Total 0.5 mg/dL (0.2-1.0)
[2024-12-21 06:10] LABS: Blood Urea Nitrogen 34 mg/dL (9-23); Glucose 167 mg/dL (74-106)
--- NOTE | 2024-12-21 11:04 | ECG ---
[facility] Test Date: 2024-12-19 Test Time: 23:44:06 Pat Name: MARYAM BINGHAM Department: ER Room: 0218T A Gender: M [place] Operator: GIANCARLO : 1960 Requested By: GABBY BRAR Order Number: [id number] Reading MD: Griffin Roberson Measurements Intervals [place] Rate: 109 P: 107 NC: 163 QRS: -87 QRSD: 159 T: 129 QT: 372 QTc: 502 Interpretive Statements Sinus tachycardia Right bundle branch block Inferior infarct, acute Electronically Signed On 12-21-2024 20:11:14 PDT by Griffin Roberson Please click the below link to view image of tracing.
--- NOTE | 2024-12-21 12:53 | DVHPN2 ---
Subjective Decreasing SOB; no dizziness and no presyncope Reviewed: Care Plan, H&P, Labs, Medications, Previous Orders, Radiology Changes from previous H/P or p: Changes Objective Vitals Vital Signs Date Time Temp Pulse Resp B/P (MAP) Pulse Ox O2 Delivery O2 Flow Rate FiO2 12/21/24 10:00 93 Room Air 0.0 12/21/24 10:00 21 12/21/24 10:00 85 113/77 12/21/24 09:08 97.6 19 97.6 Intake/Output Intake and Output 12/21/24 07:00 Intake Total 1300 ml Balance 1300 ml Intake Oral 1300 ml # Voids 5 General Appearance: Alert, Oriented X3, Cooperative, No acute distress HEENT: Atraumatic Lungs: Other (Better air entry bilateral with decreasing scattered wheezing) Cardiovascular: Regular rate, Normal S1, Normal S2 Abdomen: Normal bowel sounds, Soft, No tenderness Extremities: No edema Neuro: Normal speech, Cranial nerves 3-12 NL Psych/Mental Status: Mental status NL, Mood NL Medications Current Medications Medications Dose Ordered Sig/Sarahi Route Start Time Stop Time Status Last Admin Dose Admin Albuterol 2.5 mg Q4HPRN PRN NEB 12/20/24 04:30 12/20/24 09:58 2.5 MG Ipratropium [place] 0.5 mg Q4HPRN PRN NEB 12/20/24 04:30 12/20/24 09:58 0.5 MG Azithromycin 250 ml @ 125 mls/hr DAILY@0300 IV 12/21/24 03:00 12/21/24 04:25 125 MLS/HR Methylprednisolone Sodium Succinate 40 mg Q8HR IV 12/20/24 06:00 12/21/24 06:27 40 MG Famotidine 20 mg Q12HR IV 12/20/24 10:00 12/21/24 09:36 20 MG Aspirin 81 mg DAILY PO 12/20/24 10:00 12/21/24 09:35 81 MG Furosemide 20 mg DAILY IV 12/20/24 10:00 12/21/24 09:36 20 MG Sodium Chloride 10 ml Q8HR IV 12/20/24 06:00 12/21/24 06:27 10 ML Acetaminophen/ Hydrocodone Bitart 1 tab Q4HP PRN PO 12/20/24 04:30 Ondansetron HCl 4 mg Q4HP PRN IV 12/20/24 04:30 Docusate Sodium 100 mg BIDPRN PRN PO 12/20/24 04:30 Acetaminophen 650 mg Q6HP PRN PO 12/20/24 04:30 Carvedilol 3.125 mg Q12HR PO 12/20/24 10:00 12/20/24 22:05 3.125 MG Nitroglycerin 0.4 mg Q5MINP PRN SL 12/20/24 05:30 Morphine Sulfate 2 mg Q30M PRN IV 12/20/24 05:30 Apixaban 5 mg BID PO 12/20/24 22:00 12/21/24 09:35 5 MG Atorvastatin Calcium 20 mg HS PO 12/20/24 22:00 12/20/24 22:04 20 MG Laboratory Results Laboratory Tests 12/21/24 05:03 Chemistry Test 12/21/24 05:03 Albumin 4.1 g/dL (3.2-4.8) Calcium Level 10.1 mg/dL (8.7-10.4) Total Protein 7.0 g/dL (5.7-8.2) LFT Test 12/21/24 05:03 Alanine Aminotransferase (ALT) 19 U/L (7-40) Alkaline Phosphatase 59 U/L (46-116) Aspartate Amino Transferase (AST) 18 U/L (<34) Total Bilirubin 0.5 mg/dL (0.2-1.0) Microbiology Microbiology Date/Time Source Procedure Growth Status 12/21/24 04:20 Nose MRSA Screen - Final Complete Labs and/or images reviewed: Labs reviewed by me, Image(s) reviewed by me Assessment/Plan Assessment/Plan A 64-year-old male nonadherent patient; multiple comorbidities; who presented to the emergency department with dizziness, presyncope, and SOB. #Acute hypoxic respiratory failure due to COPD exacerbation; continue oxygen therapy as needed; continue monitoring #SOB due to COPD exacerbation; continue IV antibiotics; continue nebulizers; continue IV steroids; reviewed the available imaging studies; continue monitoring #Leukocytosis; most likely due to IV steroids; already on IV antibiotics; continue monitoring #COPD exacerbation due to Gram-positive versus Gram-negative pneumonia; continue IV antibiotics; continue monitoring #Dizziness/Presyncope; most likely related to acute on chronic systolic heart failure; negative head CT along with negative carotid duplex ultrasound; telemetry; continue monitoring #Acute on chronic systolic heart failure; continue IV diuresis; daily weight; telemetry; reviewed echocardiogram from earlier this month; continue monitoring #TAHIRA on CKD stage III; resolving with improving kidney function; avoid nephrotoxic agents; monitor kidney function daily; continue monitoring #Metabolic syndrome in the setting of overweight with prediabetes and dyslipidemia; continue home statin; counseled the patient importance of adopting healthy lifestyle with diet and exercise in order to lose weight #Bilateral pulmonary edema with right leg DVT; continue home apixaban 5 mg twice a day; continue monitoring #NSTEMI due to acute on chronic systolic heart failure exacerbation; type 2 DC; demand ischemia; on aspirin and statin; telemetry; continue monitoring #Polysubstance (Methamphetamine and Tobacco) use disorder; counseled on methamphetamine use and tobacco use cessation; still nicotine patch; continue monitoring #Nonadherence; counseled the patient on the importance of adherence to the clinical management along with taking medications as instructed upon discharge; continue monitoring This medical document was created using an electronic medical record system with computerized dictation system. Although this document has been carefully reviewed, there might still be some phonetic and typographical errors. These areas are purely typographical due to imperfections of the software programs, and do not reflect any compromise in the patient's medical care. Plan discussed with: Patient, Other My Orders Orders - KM MOTLEY MD Procedure Category Date Status Time Mrsa Screen GAMAL 12/20/24 Uncollected 20:19 Date of Service: Dec 21, 2024 Billing Provider: KM MOTLEY MD Common Visit Codes: [id number] INP/OBS CARE(HIGH) KM MOTLEY MD Dec 21, 2024 12:53
[2024-12-22] VITALS (11 sets, daily range): BP systolic 104–139; BP diastolic 57–98; PULSE 78–98; RESP 17–20; TEMP 97.6–98.4; O2SAT 92–100
[2024-12-22 08:05] LABS: Basophils # (auto) 0.1 10 ^3/uL (0-0.2); Basophils % (auto) 0.3 % (0.0-2.0); Eosinophils # (auto) 0 10 ^3/uL (0-0.8); Eosinophils % (auto) 0.1 % (0.0-7.0); Hematocrit 48.4 % (41.0-53.0); Hemoglobin 15.9 g/dL (13.5-17.5); Lymphocytes # (auto) 0.6 10 ^3/uL (0.4-5.4); Lymphocytes % (auto) 3.3 % (10.0-50.0); Mean Corpuscular Hemoglobin 28.1 pg (28.0-32.0); Mean Corpuscular Hgb Conc. 32.7 g/dL (32.0-36.0); Mean Corpuscular Volume 85.7 fL (80.0-100.0); Neutrophils # (auto) 17.6 10 ^3/uL (1.6-8.6); Neutrophils % (auto) 91.3 % (37.0-80.0); Platelet Count (auto) 300 10^3/uL (140-450); Red Blood Cells 5.65 10^6/uL (4.5-5.90); Red Cell Distribution Width 14.3 % (11.8-14.3); White Blood Cell 19.3 10^3/uL (4.4-10.8)
[2024-12-22 08:08] LABS: Chloride 104 mmol/L (98-107); Potassium 4.9 mmol/L (3.5-5.1)
[2024-12-22 08:09] LABS: Anion Gap 9 (5-15); Calcium 9.6 mg/dL (8.7-10.4); Carbon Dioxide 22 mmol/L (20-31)
[2024-12-22 08:11] LABS: Sodium 135 mmol/L (136-145)
[2024-12-22 08:14] LABS: Blood Urea Nitrogen 35 mg/dL (9-23); Glucose 143 mg/dL (74-106)
--- NOTE | 2024-12-22 09:41 | DVHPN2 ---
Subjective Decreasing SOB; no dizziness and no presyncope Reviewed: Care Plan, H&P, Labs, Medications, Previous Orders, Radiology Changes from previous H/P or p: Changes Objective Vitals Vital Signs Date Time Temp Pulse Resp B/P (MAP) Pulse Ox O2 Delivery O2 Flow Rate FiO2 12/22/24 09:34 111/80 12/22/24 08:00 Room Air* 0 21 12/22/24 05:58 92 12/22/24 05:00 97.9 88 20 97.9 Intake/Output Intake and Output 12/22/24 07:00 Intake Total 2600 ml Balance 2600 ml Intake Oral 2350 ml IV Total 250 ml # Voids 1 General Appearance: Alert, Oriented X3, Cooperative, No acute distress HEENT: Atraumatic Lungs: Other (Better air entry bilateral with decreasing scattered wheezing) Cardiovascular: Regular rate, Normal S1, Normal S2 Abdomen: Normal bowel sounds, Soft, No tenderness Extremities: No edema Neuro: Normal speech, Cranial nerves 3-12 NL Psych/Mental Status: Mental status NL, Mood NL Medications Current Medications Medications Dose Ordered Sig/Sarahi Route Start Time Stop Time Status Last Admin Dose Admin Albuterol 2.5 mg Q4HPRN PRN NEB 12/20/24 04:30 12/20/24 09:58 2.5 MG Ipratropium [place] 0.5 mg Q4HPRN PRN NEB 12/20/24 04:30 12/20/24 09:58 0.5 MG Azithromycin 250 ml @ 125 mls/hr DAILY@0300 IV 12/21/24 03:00 12/22/24 03:31 125 MLS/HR Methylprednisolone Sodium Succinate 40 mg Q8HR IV 12/20/24 06:00 12/22/24 05:25 40 MG Famotidine 20 mg Q12HR IV 12/20/24 10:00 12/22/24 09:34 20 MG Aspirin 81 mg DAILY PO 12/20/24 10:00 12/22/24 09:34 81 MG Furosemide 20 mg DAILY IV 12/20/24 10:00 12/22/24 09:34 20 MG Sodium Chloride 10 ml Q8HR IV 12/20/24 06:00 12/22/24 05:25 10 ML Acetaminophen/ Hydrocodone Bitart 1 tab Q4HP PRN PO 12/20/24 04:30 Ondansetron HCl 4 mg Q4HP PRN IV 12/20/24 04:30 Docusate Sodium 100 mg BIDPRN PRN PO 12/20/24 04:30 Acetaminophen 650 mg Q6HP PRN PO 12/20/24 04:30 Carvedilol 3.125 mg Q12HR PO 12/20/24 10:00 12/21/24 22:07 3.125 MG Nitroglycerin 0.4 mg Q5MINP PRN SL 12/20/24 05:30 Morphine Sulfate 2 mg Q30M PRN IV 12/20/24 05:30 Apixaban 5 mg BID PO 12/20/24 22:00 12/22/24 09:34 5 MG Atorvastatin Calcium 20 mg HS PO 12/20/24 22:00 12/21/24 22:08 20 MG Laboratory Results Laboratory Tests 12/22/24 07:50 Chemistry Test 12/22/24 07:50 Calcium Level 9.6 mg/dL (8.7-10.4) Microbiology Microbiology Date/Time Source Procedure Growth Status 12/21/24 04:20 Nose MRSA Screen - Final Complete Labs and/or images reviewed: Labs reviewed by me, Image(s) reviewed by me Assessment/Plan Assessment/Plan A 64-year-old male nonadherent patient; multiple comorbidities; who presented to the emergency department with dizziness, presyncope, and SOB. #Acute hypoxic respiratory failure due to COPD exacerbation; resolved, now on room air; to restart oxygen therapy if needed; continue monitoring #SOB due to COPD exacerbation; continue IV antibiotics; continue nebulizers; switched IV steroids to oral as below; reviewed the available imaging studies; continue monitoring #Leukocytosis; most likely due to IV steroids; switched IV steroids to oral; already on IV antibiotics; continue monitoring #COPD exacerbation due to Gram-positive versus Gram-negative pneumonia; continue IV antibiotics; continue monitoring #Dizziness/Presyncope; most likely related to acute on chronic systolic heart failure; negative head CT along with negative carotid duplex ultrasound; telemetry; continue monitoring #Acute on chronic systolic heart failure; continue IV diuresis; daily weight; telemetry; reviewed echocardiogram from earlier this month; continue monitoring #TAHIRA on CKD stage III; resolving with almost back to baseline kidney function; avoid nephrotoxic agents; monitor kidney function daily; continue monitoring #Metabolic syndrome in the setting of overweight with prediabetes and dyslipidemia; continue home statin; counseled the patient importance of adopting healthy lifestyle with diet and exercise in order to lose weight #Bilateral pulmonary edema with right leg DVT; continue home apixaban 5 mg twice a day; continue monitoring #NSTEMI due to acute on chronic systolic heart failure exacerbation; type 2 ID; demand ischemia; on aspirin and statin; telemetry; continue monitoring #Polysubstance (Methamphetamine and Tobacco) use disorder; counseled on methamphetamine use and tobacco use cessation; still nicotine patch; continue monitoring #Nonadherence; counseled the patient on the importance of adherence to the clinical management along with taking medications as instructed upon discharge; continue monitoring This medical document was created using an electronic medical record system with computerized dictation system. Although this document has been carefully reviewed, there might still be some phonetic and typographical errors. These areas are purely typographical due to imperfections of the software programs, and do not reflect any compromise in the patient's medical care. Plan discussed with: Patient, Other My Orders Orders - KM MOTLEY MD Procedure Category Date Status Time Basic Metabolic Panel LAB 12/23/24 Verified 04:00 Complete Blood Count LAB 12/23/24 Verified 04:00 Date of Service: Dec 22, 2024 Billing Provider: KM MOTLEY MD Common Visit Codes: [id number] INP/OBS CARE(HIGH) KM MOTLEY MD Dec 22, 2024 09:41
--- NOTE | 2024-12-22 13:45 | MEDREC ---
[facility] ASP Intervention Section I [facility] ASP Intervention: Review courses of therapy (DUE TO PROLONG QTc > 500 PLEASE CONSIDER SWITCHING AZITHROMYCIN TO DOXYCYCLINE ) ADY BERMAN PHARMACIST Dec 22, 2024 13:45
[2024-12-23] VITALS (10 sets, daily range): BP systolic 91–137; BP diastolic 68–92; PULSE 68–104; RESP 16–20; TEMP 36.8; O2SAT 94–99
[2024-12-23 07:45] LABS: Basophils # (auto) 0 10 ^3/uL (0-0.2); Basophils % (auto) 0.2 % (0.0-2.0); Eosinophils # (auto) 0 10 ^3/uL (0-0.8); Eosinophils % (auto) 0.2 % (0.0-7.0); Hematocrit 52.1 % (41.0-53.0); Hemoglobin 17.3 g/dL (13.5-17.5); Lymphocytes # (auto) 1.7 10 ^3/uL (0.4-5.4); Lymphocytes % (auto) 12.5 % (10.0-50.0); Mean Corpuscular Hemoglobin 28.7 pg (28.0-32.0); Mean Corpuscular Hgb Conc. 33.2 g/dL (32.0-36.0); Mean Corpuscular Volume 86.2 fL (80.0-100.0); Monocytes # (auto) 1.7 10 ^3/uL (0-1.3); Monocytes % (auto) 12.4 % (0.0-12.0); Neutrophils # (auto) 10.2 10 ^3/uL (1.6-8.6); Neutrophils % (auto) 74.7 % (37.0-80.0); Nucleated Red Blood Cells % 0.1 %; Platelet Count (auto) 270 10^3/uL (140-450); Red Blood Cells 6.04 10^6/uL (4.5-5.90); Red Cell Distribution Width 14.5 % (11.8-14.3); White Blood Cell 13.6 10^3/uL (4.4-10.8)
[2024-12-23 07:53] LABS: Chloride 103 mmol/L (98-107); Potassium 4.9 mmol/L (3.5-5.1); Sodium 136 mmol/L (136-145)
[2024-12-23 07:54] LABS: Anion Gap 8 (5-15); Carbon Dioxide 25 mmol/L (20-31)
[2024-12-23 07:55] LABS: Calcium 9.8 mg/dL (8.7-10.4)
[2024-12-23 07:59] LABS: BUN/Creatinine Ratio 16.1 (10.0-20.0)
[2024-12-23 08:06] LABS: Blood Urea Nitrogen 31 mg/dL (9-23); Glucose 70 mg/dL (74-106)
[2024-12-23] MEDS: predniSONE 20 MG TAB PO SCH (09:34)
[2024-12-23] MEDS ORDERED: DOXY100C79 PO (15:26)
[2024-12-23] MEDS ORDERED: PRED20TA2 PO (15:26)
[2024-12-23] MEDS ORDERED: APIX5TAB PO (15:26)
--- NOTE | 2024-12-23 15:35 | DVHDS2 ---
Discharge Summary Date of Admission Dec 20, 2024 at 05:21 Date of Discharge: Dec 23, 2024 Admitting Diagnosis COPD with exacerbation Labs/Diagnostic Data: Laboratory Results Test 12/23/24 04:54 12/21/24 05:03 12/20/24 02:58 12/20/24 00:29 White Blood Count 13.6 10^3/uL (4.4-10.8) Red Blood Count 6.04 10^6/uL (4.5-5.90) Hemoglobin 17.3 g/dL (13.5-17.5) Hematocrit 52.1 % (41.0-53.0) Mean Corpuscular Volume 86.2 fL (80.0-100.0) Mean Corpuscular Hemoglobin 28.7 pg (28.0-32.0) Mean Corpuscular Hemoglobin Concent 33.2 g/dL (32.0-36.0) Red Cell Distribution Width 14.5 % (11.8-14.3) Platelet Count 270 10^3/uL (140-450) Mean Platelet Volume 8.8 fL (6.9-10.8) Neutrophils (%) (Auto) 74.7 % (37.0-80.0) Lymphocytes (%) (Auto) 12.5 % (10.0-50.0) Monocytes (%) (Auto) 12.4 % (0.0-12.0) Eosinophils (%) (Auto) 0.2 % (0.0-7.0) Basophils (%) (Auto) 0.2 % (0.0-2.0) Neutrophils # (Auto) 10.2 10 ^3/uL (1.6-8.6) Lymphocytes # (Auto) 1.7 10 ^3/uL (0.4-5.4) Monocytes # (Auto) 1.7 10 ^3/uL (0-1.3) Eosinophils # (Auto) 0 10 ^3/uL (0-0.8) Basophils # (Auto) 0 10 ^3/uL (0-0.2) Nucleated Red Blood Cells 0.1 % Sodium Level 136 mmol/L (136-145) Potassium Level 4.9 mmol/L (3.5-5.1) Chloride Level 103 mmol/L (98-107) Carbon Dioxide Level 25 mmol/L (20-31) Anion Gap 8 (5-15) Blood Urea Nitrogen 31 mg/dL (9-23) Creatinine 1.93 mg/dL (0.700-1.30) Glomerular Filtration Rate Calc 38 mL/min (>90) BUN/Creatinine Ratio 16.1 (10.0-20.0) Serum Glucose 70 mg/dL (74-106) Calcium Level 9.8 mg/dL (8.7-10.4) Total Bilirubin 0.5 mg/dL (0.2-1.0) Aspartate Amino Transferase (AST) 18 U/L (<34) Alanine Aminotransferase (ALT) 19 U/L (7-40) Alkaline Phosphatase 59 U/L (46-116) Total Protein 7.0 g/dL (5.7-8.2) Albumin 4.1 g/dL (3.2-4.8) Troponin I High Sensitivity 149 ng/L (</=54) Lactic Acid Level 1.6 mmol/L (0.4-2.0) B-Type Natriuretic Peptide 236.58 pg/mL (0-100) Other Laboratory Tests 12/23/24 04:54 Brief Hx & Hospital Course: History of Present Illness The patient is a 64-year-old male with past medical history of CHF, hypertension, and COPD who presented to [facility] ED with complaint of shortness of breaths. Patient reports for the past 2 days he has been experiencing cough, increased work of breathing, desaturating room air, progressively worsening that prompted this visit. Patient was seen and evaluated in the ED, laboratory data shows WBC 9.6, platelets 330, sodium 134, potassium 4.5, BUN 25, creatinine 2.36, glucose 99, calcium 9.0, BNP 236.58, troponin 142, blood pressure 129/80, heart rate 106, temperature 99.0 F, O2 saturation 96% on oxygen. Chest x-ray revealing Marina perihilar opacity which could reflect subsegmental atelectasis or pneumonia. Patient was started on IV antibiotic regimen azithromycin, please see medication orders section in the computer. On my assessment, patient denied chest pain, no headache, no dizziness, no diaphoresis, currently on oxygen, no nausea, vomiting, no fever, no chills. Patient was admitted for further evaluation and medical management. Course of hospitalization: Patient was started on IV antibiotic therapy, bronchodilators, steroids which was switched to oral prednisone. Patient has been weaned off oxygen. Clinically, patient has improved and is requesting to be discharged home. Review of patient's medical records reveals he left against medical advice on 11/30/2024. Patient was started on anticoagulation with Eliquis while he was in the hospital. Review of external pharmacy reveals patient has had no previous prescriptions in the last six months. Patient will be discharged home with Eliquis 5 mg p.o. b.i.d., doxycycline 100 mg p.o. b.i.d., as well as prednisone 20 mg p.o. daily for seven days. Patient was instructed to stop using illicit drugs including amphetamines as well as smoking tobacco cigarettes. He will follow up with his PCP, Dr. Singleton within 1-2 weeks. Patient was agreeable with discharge plan. All questions answered. Physical examination General: Alert and Oriented x3. No acute distress. Well-nourished. Eyes: EOMI. Anicteric. HENT: Moist mucous membranes. Lungs: Clear to auscultation bilaterally. No accessory muscle use. Cardiovascular: Regular rate and rhythm. No murmur. No JVD. Abdomen: Soft, non-tender and non-distended. No palpable masses. Extremities: No edema. Non-tender. Skin: No rashes or lesions. Warm. Neurologic: No focal neurological deficits. CN II-XII grossly intact, but not individually tested. Psychiatric: Cooperative. Appropriate mood and affect. Total time spent with patient discussing and formulating plan of care: 35 minutes. This medical document was created using an electronic medical record system with [employer] dictation system. Although this document has been carefully reviewed, there may still be some phonetic and typographical errors. These areas are purely typographical due to imperfections of the software programs, and do not reflect any compromise in the patient's medical care. Condition at Discharge: Fair Final Diagnosis/Problems List COPD with exacerbation Secondary diagnosis: Acute hypoxic respiratory failure -history of pulmonary embolism -illicit drug use -accelerated hypertension -AKA, probable V MN Discharge Disposition: Home Discharge Instruct/Medications Diet: Cardiac 2g Na,low cholest (2 gm sodium, low cholesterol) Follow Up/Referral: PCP in one week Medications: Eliquis 5 mg p.o. b.i.d. Doxycycline 100 mg p.o. b.i.d. Prednisone 20 mg p.o. daily 36 Discharge Statement: "Patient was advised to return to the ER or call 911 if any headaches, dizziness, shortness of breath, chest pain, abdominal pain, bleeding, fevers, or worsening of medical condition. Patient was counseled about treatment plan, medications, possible side effects, patientverbalized understanding. All questions were answered to the best of my ability. This discharge took greater then 30 minutes in planning, reviewing documentation, counseling the patient, and discussing with other team members." ASSESSMENT ASSESSMENT Assessment Date of Service: Dec 23, 2024 Billing Provider: MARGARITO DAVIS NP Common Visit Codes: [id number] DISCH DAY >30min MARGARITO DAVIS NP Dec 23, 2024 15:35
== END 2024-12-23 17:00 | disposition home or self-care (01) | DRG 133 ==
LOC: ER 22:27 → OVERFLOW 12-20 05:21 → TELE-CENTR 12-20 15:07 → CENTRAL 12-23 11:14
PROVIDERS: ADMIT Nurse Practitioner Acute Care; ATTEND Nurse Practitioner Acute Care
DX: J96.01 Acute respiratory failure with hypoxia (principal); N17.0 Acute kidney failure with tubular necrosis; I50.23 Acute on chronic systolic (congestive) heart failure; J15.69 Pneumonia due to other Gram-negative bacteria; I21.A1 Myocardial infarction type 2; I13.0 Hypertensive heart and chronic kidney disease with heart failure and stage 1 through stage 4 chronic kidney disease, or unspecified chronic kidney disease; J15.9 Unspecified bacterial pneumonia; J44.1 Chronic obstructive pulmonary disease with (acute) exacerbation; J44.0 Chronic obstructive pulmonary disease with (acute) lower respiratory infection; N18.30 Chronic kidney disease, stage 3 unspecified; E88.810 Metabolic syndrome; F15.10 Other stimulant abuse, uncomplicated; F17.210 Nicotine dependence, cigarettes, uncomplicated; Z86.711 Personal history of pulmonary embolism; Z79.01 Long term (current) use of anticoagulants; Z79.899 Other long term (current) drug therapy; Z91.199 Patient's noncompliance with other medical treatment and regimen due to unspecified reason
CPT/HCPCS: 36415; 70450; 71045; 80048; 80053; 83605; 83880; 84484; 85025; 87081; 93005; 93886; 94640; G0378; J3490